=== PATIENT | female | born 1940 | race Caucasian/White ===

== ENCOUNTER 2016-11-05 08:43 | Inpatient (IN) | payer MEDICARE, OTHER ==
[~2016-11-05] VITALS: Ht 165.1 cm; Wt 95.3 kg
[~2016-11-05 08:43] MED LIST: AMLO5TAB22 PO; BYST10TA2 PO; CHLO50TA PO; DOCU1CAP39 PO; ERGO50000 PO; GABA100C4 PO; MORP20SO PO; NEXI40CA PO; NITR.4 SL; NITR4.9S3 SL; OXYC1SOL5 PO; SYNT137T PO; XANA0.5T PO; Z.0.COMMODE-3:1; Z.0.WALKERFRONT
[2016-11-05 08:44] VITALS: BP 205/97; PULSE 105; RESP 20; TEMP 98; O2SAT 97
[2016-11-05] MEDS ORDERED: SODIUM CHLOR 0.9% 1000 ML INJ 1,000 ML IV SCH (09:16)
--- NOTE | 2016-11-05 09:17 | PD ---
HPI Chief Complaint: GI Complaint Time Seen by Provider: 09:15 Travel History International Travel<30 days: No Contact w/Intl Traveler<30days: No Traveled to known affect area: No History of Present Illness HPI 76-year-old female reports vomiting over the course of the night. 8 episodes of vomiting approximately reported. Bilious emesis and now reported. Positive bowel movements without diarrhea reported. No fever. The patient was in a car yesterday apparently without air conditioning which overheated the patient. She denies any idiosyncratic food or potentially food causing food poisoning that she can think of. She reports the triage nurse she had abdominal pain however to me she reports pain in the esophagus which she attributes to her current episodes of vomiting. Severity moderate. Onset gradual. PFSH Past Medical History Arthritis: Yes Asthma: Yes Heart Rhythm Problems: Yes Cancer: No Cardiac Catheterization: Yes Cardiovascular Problems: Yes High Cholesterol: No Chest Pain: Yes Congestive Heart Failure: No Diabetes: No Diminished Hearing: No Endocrine: Yes Gastrointestinal Disorders: Yes (GERD) GERD: Yes Genitourinary: No Hepatitis: Yes (HX JAUNDICE) Hiatal Hernia: Yes Herniated Disk: Yes Hypertension: Yes Immune Disorder: No Inguinal Hernia: Yes Implanted Vascular Access Dvce: Yes Kidney Stones: Yes Musculoskeletal: Yes (LEFT SCIATICA, ARTHRITIS, LOW BACK PAIN) Neurologic: No Psychiatric: Yes (CLAUSTRAPHOBIA) Reproductive: No Respiratory: Yes (ASTHMA, HX BRONCHIECTASIS) Myocardial Infarction: Yes Renal Failure: Yes (STAGE 4 CHRONIC KIDNEY DISEASE) Thyroid Disease: Yes Influenza Vaccination: No ?: Not Menopausal: Yes : 6 Para: 6 Past Surgical History Abdominal Surgery: Yes (EXPL. LAP (X4) LYSIS ADHESIONS, CHOLECYSTECTOMY/ APPY) AICD: No Appendectomy: Yes Body Medical Devices: RIGHT KNEE Cardiac Surgery: Yes Cholecystectomy: Yes Coronary Artery Bypass Graft: No Eye Surgery: Yes (CATARACT ) Genitourinary Surgery: Yes (5 BOWEL OBSTRUCTIONS) Gynecologic Surgery: Yes (VAG. HYST.) Hysterectomy: Yes Joint Replacement: Yes (BILATERAL KNEE) Pacemaker: No Other Surgery: Yes Social History Alcohol Use: No Tobacco Use: No Substance Use: No Allergies-Medications (Allergen,Severity, Reaction): Coded Allergies: Lactose (Unverified Allergy, Severe, GI CRAMPING, 12/19/15) Penicillin (Verified Allergy, Severe, 12/19/15) Codeine (Verified Allergy, Intermediate, SOB, 12/19/15) Milk (Verified Allergy, Intermediate, ACHE, 12/19/15) PEANUTS (Verified Allergy, Intermediate, Swelling, 12/19/15) Sulfa (Verified Allergy, Intermediate, RESP , 12/19/15) Cinnamon (Verified Allergy, Unknown, 12/19/15) Erythromycin (Verified Allergy, Unknown, 12/19/15) Reported Meds & Prescriptions Reported Meds & Active Scripts Active Zofran Odt (Ondansetron Odt) 4 Mg Tab 4 Mg SL Q8HR PRN Reported Synthroid (Levothyroxine Sodium) 137 Mcg Tab 137 Mcg PO DAILY Nexium (Esomeprazole DR) 40 Mg Capdr 40 Mg PO DAILY Gabapentin 100 Mg Cap 100 Mg PO HS Chlorthalidone 25 Mg Tab 12.5 Mg PO DAILY Bystolic (Nebivolol) 10 Mg Tab 20 Mg PO DAILY Amlodipine (Amlodipine Besylate) 5 Mg Tab 5 Mg PO DAILY Ms Contin (Morphine Sulfate) 30 Mg Tablet.er 15 Mg PO HS Xanax (Alprazolam) 0.5 Mg Tab 0.5 Mg PO DAILY Vitamin D2 (Ergocalciferol) 2,000 Unit Tab 5,000 Units PO DAILY Oxycodone-Acetaminophen 7.5-325 mg Tab 1 Tab PO Q6H PRN Review of Systems Except as stated in HPI: all other systems reviewed are Neg General / Constitutional: No: Fever Physical Exam Narrative GENERAL: 76-year-old female well-nourished well-developed mild distress secondary to nausea SKIN: Warm and dry. HEAD: Atraumatic. Normocephalic. EYES: Pupils equal and round. No scleral icterus. No injection or drainage. ENT: No nasal bleeding or discharge. Mucous membranes pink and moist. NECK: Trachea midline. No JVD. CARDIOVASCULAR: Tachycardia. Irregular rhythm. RESPIRATORY: No accessory muscle use. Clear to auscultation. Breath sounds equal bilaterally. GASTROINTESTINAL: Abdomen soft, non-tender, nondistended. Hepatic and splenic margins not palpable. MUSCULOSKELETAL: Extremities without clubbing, cyanosis, or edema. No obvious deformities. NEUROLOGICAL: Awake and alert. No obvious cranial nerve deficits. Motor grossly within normal limits. Five out of 5 muscle strength in the arms and legs. Normal speech. PSYCHIATRIC: Appropriate mood and affect; insight and judgment normal. Data Data Last Documented VS Vital Signs Date Time Temp Pulse Resp B/P Pulse Ox O2 Delivery O2 Flow Rate FiO2 11/05/16 12:53 77 16 156/70 97 Room Air 11/05/16 08:44 98.0 Vital signs reviewed Orders Basic Metabolic Panel (Bmp) (11/05/16 09:16) Complete Blood Count With Diff (11/05/16 09:16) Urinalysis - C+S If Indicated (11/05/16 09:16) Iv Access Insert/Monitor (11/05/16 09:16) Ecg Monitoring (11/05/16 09:16) Oximetry (11/05/16 09:16) Ondansetron Inj (Zofran Inj) (11/05/16 09:30) Sodium Chlor 0.9% 1000 Ml Inj (Ns 1000 M (11/05/16 09:16) Sodium Chloride 0.9% Flush (Ns Flush) (11/05/16 09:30) Al-Mag Hy-Si 40-40-4 Mg/Ml Liq (Mag-Al P (11/05/16 09:30) Lidocaine 2% Viscous (Xylocaine 2% Visco (11/05/16 09:30) Oxycodone-Acetamin 10-325 Mg (Percocet 1 (11/05/16 09:30) Promethazine Inj (Phenergan Inj) (11/05/16 12:00) Prochlorperazine Inj (Compazine Inj) (11/05/16 12:45) Electrocardiogram (11/05/16 ) Hepatic Functional Panel (11/05/16 10:37) Creatine Kinase (Cpk) (11/05/16 10:37) Lipase (11/05/16 10:37) Troponin I (11/05/16 10:37) Ct Abd/Pel W/O Iv Contrast (11/05/16 12:33) Insert Ng Tube (11/05/16 14:13) Admit Order (Ed Use Only) (11/05/16 14:19) Labs Laboratory Tests Test 11/05/16 10:37 White Blood Count 6.9 TH/MM3 Red Blood Count 4.47 MIL/MM3 Hemoglobin 14.0 GM/DL Hematocrit 40.6 % Mean Corpuscular Volume 90.8 FL Mean Corpuscular Hemoglobin 31.3 PG Mean Corpuscular Hemoglobin 34.4 % Concent Red Cell Distribution Width 13.8 % Platelet Count 179 TH/MM3 Mean Platelet Volume 8.9 FL Neutrophils (%) (Auto) 87.2 % Lymphocytes (%) (Auto) 8.7 % Monocytes (%) (Auto) 3.9 % Eosinophils (%) (Auto) 0.1 % Basophils (%) (Auto) 0.1 % Neutrophils # (Auto) 6.0 TH/MM3 Lymphocytes # (Auto) 0.6 TH/MM3 Monocytes # (Auto) 0.3 TH/MM3 Eosinophils # (Auto) 0.0 TH/MM3 Basophils # (Auto) 0.0 TH/MM3 CBC Comment DIFF FINAL Differential Comment Urine Color YELLOW Urine Turbidity CLEAR Urine pH 6.0 Urine Specific [place] 1.014 Urine Protein TRACE mg/dL Urine Glucose (UA) NEG mg/dL Urine Ketones NEG mg/dL Urine Occult Blood NEG Urine Nitrite NEG Urine Bilirubin NEG Urine Urobilinogen LESS THAN 2.0 MG/DL Urine Leukocyte Esterase TRACE Urine RBC 1 /hpf Urine WBC 6 /hpf Urine Squamous Epithelial 1 /hpf Cells Urine Bacteria RARE /hpf Microscopic Urinalysis Comment CULT NOT INDICATED Sodium Level 132 MEQ/L Potassium Level 3.7 MEQ/L Chloride Level 97 MEQ/L Carbon Dioxide Level 25.7 MEQ/L Anion Gap 9 MEQ/L Blood Urea Nitrogen 25 MG/DL Creatinine 1.60 MG/DL Estimat Glomerular Filtration 31 ML/MIN Rate Random Glucose 157 MG/DL Calcium Level 8.8 MG/DL Total Bilirubin 0.9 MG/DL Direct Bilirubin 0.2 MG/DL Indirect Bilirubin 0.7 MG/DL Aspartate Amino Transf 19 U/L (AST/SGOT) Alanine Aminotransferase 22 U/L (ALT/SGPT) Alkaline Phosphatase 89 U/L Total Creatine Kinase 74 U/L Troponin I LESS THAN 0.02 NG/ML Total Protein 7.4 GM/DL Albumin 3.8 GM/DL Lipase 49 U/L [facility] Medical Decision Making Medical Screen Exam Complete: Yes Emergency Medical Condition: Yes Medical Record Reviewed: Yes Differential Diagnosis Constipation, Gastritis, Acute Cholecystitis, Biliary Colic, Pancreatitis, SLOAN , Hepatitis, Bowel Obstruction, Cystitis, Mesenteric Ischemia, AAA, Appendicitis , Renal Stone/Hydronephrosis, GERD, perforated viscous Narrative Course CBC & BMP Diagram 11/05/16 10:37 Urinalysis: Trace leukocyte esterase with 6 WBCs and rare bacteria potentially consistent with cystitis LFTs normal Lipase normal Troponin less than 0.02 EKG reveals a sinus rhythm normal axis and intervals Mild persistent nausea reported at 1150. The Zofran hasn't been helpful. Phenergan IM given. Patient vomited after that. Compazine ordered. CT abdomen and pelvis ordered as well as LFTs and lipase. A CT abdomen and pelvis reveals small bowel obstruction. NG tube ordered. The patient will be admitted for IV hydration and serial exams. At 2:20 PM patient was found resting comfortably. She refused nasogastric tube insertion. She reports a history of hysterectomy and multiple prior small bowel obstructions. Case discussed with Dr. Tilley for the [facility] hospitalist group at 2:20 PM. Critical Care Narrative Aggregate critical care time was 35 minutes. Time to perform other separately billable procedures was not included in the critical care time. My time did not include minutes spent treating any other patients simultaneously or on activities that did not directly contribute to the patient's treatment. The services I provided to this patient were to treat and/or prevent clinically significant deterioration that could result in: Small bowel obstruction, perforated bowel, septic shock I provided critical care services requiring my management, as noted below: Chart data review, documentation time, medication orders and management, vital sign assessments/reviewing monitor data, ordering and reviewing lab tests, ordering and interpreting/reviewing x-rays and diagnostic studies, care of the patient and discussion of the patient with the admitting physicians. Diagnosis Primary Impression: Vomiting Qualified Code: R11.11 - Non-intractable vomiting without nausea, unspecified vomiting type Additional Impressions: Cystitis Small bowel obstruction Admitting Information Admitting Physician Requests: Admit Referrals: Primary Care Physician 2 days Scripts Ondansetron Odt (Zofran Odt)4 Mg Tab4 Mg SL Q8HR PRN (Nausea/Vomiting) #10 TAB Ref 0 Prov:Robert Hadley MD 11/05/16 Robert Hadley MD Nov 05, 2016 09:17
[2016-11-05] MEDS ORDERED: ONDANSETRON HCL 4 MG/2 ML VIAL IVP ONE (09:30)
[2016-11-05] MEDS ORDERED: ALUMINUM/MAGNESIUM/SIMETH 30 ML CUP PO ONE (09:30)
[2016-11-05] MEDS ORDERED: SODIUM CHLORIDE 0.9% FLUSH 10 ML FLUSH IV FLUSH PRN ×2 (09:30→14:45)
[2016-11-05] MEDS ORDERED: oxyCODONE/ACETAMINOPHEN 10 MG/325 MG TAB PO ONE (09:30)
[2016-11-05] MEDS ORDERED: LIDOCAINE VISCOUS 2% SOLN 15 ML UDC PO ONE (09:30)
[2016-11-05] MEDS ORDERED: AMLO5TAB2 PO (09:44)
[2016-11-05] MEDS ORDERED: OXYC1TAB35 PO (09:44)
[2016-11-05] MEDS ORDERED: BYST10TA2 PO (09:44)
[2016-11-05] MEDS ORDERED: ERGO2000 PO (09:44)
[2016-11-05] MEDS ORDERED: CHLO25TA2 PO (09:44)
[2016-11-05] MEDS ORDERED: MS C30TA5 PO (09:44)
[2016-11-05] MEDS ORDERED: ALPR.5 PO (09:44)
[2016-11-05] MEDS ORDERED: GABA100C4 PO (09:45)
[2016-11-05] MEDS ORDERED: NEXI40CA PO (09:45)
[2016-11-05] MEDS ORDERED: LEVO-86 PO (09:45)
[2016-11-05 10:00] VITALS: BP 150/70; PULSE 79; RESP 12; O2SAT 95
[2016-11-05 10:59] LABS: BACTERIA, URINE RARE /hpf; BLOOD, URINE NEG (NEG); COMMENT (UR) CULT NOT INDICATED; CULTURE IF INDICATED CULT NOT INDICATED; GLUCOSE,URINE NEG (NEG); KETONE, URINE NEG (NEG); NITRITE,URINE NEG (NEG); SQUAMOUS EPITHELIAL CELL URINE 1 /hpf (0-5); URINE COLOR YELLOW (YELLW/STRAW)
[2016-11-05 11:07] LABS: BASOPHIL % 0.1 % (0.0-2.0); EOSINOPHIL % 0.1 % (0.0-4.0); HEMATOCRIT 40.6 % (35.0-46.0); HEMO FLAGS DIFF FINAL; LYMPH % 8.7 % (9.0-44.0); LYMPHOCYTE # 0.6 TH/MM3 (1.0-4.8); MEAN CELL VOLUME 90.8 FL (80.0-100.0); MEAN CORPUSCULAR HEMOGLOBIN 31.3 PG (27.0-34.0); MEAN CORPUSCULAR HGB CONC 34.4 % (32.0-36.0); MONO % 3.9 % (0.0-8.0); NEUT % 87.2 % (16.0-70.0); PLATELET COUNT 179 TH/MM3 (150-450); RED BLOOD COUNT 4.47 MIL/MM3 (4.00-5.30); RED CELL DISTRIBUTION WIDTH 13.8 % (11.6-17.2); WHITE BLOOD COUNT 6.9 TH/MM3 (4.0-11.0)
[2016-11-05 11:08] LABS: ANION GAP 9 MEQ/L (5-15); BICARBONATE 25.7 MEQ/L (21.0-32.0); BLOOD UREA NITROGEN 25 MG/DL (7-18); CHLORIDE 97 MEQ/L (98-107); GLOMERULAR FILTRATION RATE 31 ML/MIN (>89); POTASSIUM 3.7 MEQ/L (3.5-5.1); SODIUM (NA) 132 MEQ/L (136-145)
[2016-11-05] MEDS ORDERED: ZOFR4TAB3 SL (11:33)
[2016-11-05] MEDS ORDERED: PROMETHAZINE INJ 25 MG/ML VIAL IM ONE (12:00)
[2016-11-05] MEDS ORDERED: PROCHLORPERAZINE INJ 10 MG/2 ML VIAL IV PUSH ONE (12:45)
[2016-11-05 12:53] VITALS: BP 156/70; PULSE 77; RESP 16; O2SAT 97
[2016-11-05 13:03] LABS: ALT (GPT) 22 U/L (10-53); AST (GOT) 19 U/L (15-37)
[2016-11-05 13:07] LABS: ALKALINE PHOSPHATASE 89 U/L (45-117); INDIRECT BILIRUBIN 0.7 MG/DL (0.0-0.8); TOTAL BILIRUBIN ADULT 0.9 MG/DL (0.2-1.0)
[2016-11-05 13:10] LABS: CREATINE KINASE 74 U/L (26-192)
--- NOTE | 2016-11-05 13:47 | RADRPT ---
EXAM DATE/TIME: 11/05/2016 13:20 [facility] COMPARISON: CT ABDOMEN & PELVIS W CONTRAST, April 27, 2012, 2:28. INDICATIONS : Abdominal pain, nausea and vomiting since yesterday. ORAL CONTRAST: No oral contrast ingested. RADIATION DOSE: 17.18 CTDIvol (mGy) MEDICAL HISTORY : Cardiovascular disease. Hypertension. Renal failure, chronic. SURGICAL HISTORY : Appendectomy. Cholecystectomy.Hysterectomy. ENCOUNTER: Initial ACUITY: 1 day PAIN SCALE: 5/10 LOCATION: Bilateral lower quadrant TECHNIQUE: Volumetric scanning of the abdomen and pelvis was performed. Using automated exposure control and ad justment of the mA and/or kV according to patient size, radiation dose was kept as low as reasonably achievable to obtain optimal diagnostic quality images. DICOM format image data is available electro nically for review and comparison. The lack of IV contrast limits the diagnosis for certain organ pa thology. FINDINGS: LOWER LUNGS: The visualized lower lungs are clear. LIVER: Homogeneous density without lesion. There is no dilation of the biliary tree. No calcified gallston es. SPLEEN: Normal size without lesion. PANCREAS: The pancreas appears to be atrophic. This is not significantly changed compared to 2012. No inflammat ory changes are demonstrated. KIDNEYS: Normal in size and shape. There is no mass, stone, or hydronephrosis. ADRENAL GLANDS: Within normal limits. VASCULAR: There is no aortic aneurysm. BOWEL/MESENTERY: There are multiple moderately dilated loops of proximal and mid small bowel. The distal small bowel i s within normal limits. This suggests a mid to distal partial small bowel obstruction. No inflammator y changes are seen. No free air or free fluid is seen. The colon is within normal limits. There is so me scattered diverticulosis of the descending and sigmoid colon without inflammatory changes. Stool t hroughout the colon. ABDOMINAL WALL: Within normal limits. RETROPERITONEUM: There is no lymphadenopathy. BLADDER: No wall thickening or mass. REPRODUCTIVE: Within normal limits. INGUINAL: There is no lymphadenopathy or hernia. MUSCULOSKELETAL: Within normal limits for patient age. Primary degenerative changes. CONCLUSION: 1. Multiple moderately dilated loops of proximal to mid small bowel suggestive of a small bowel obstr uction. 2. Scattered diverticulosis of the descending and sigmoid colon without inflammatory changes. 3. Stable atrophic appearance of the pancreas. Bernard Fitzgerald MD on November 05, 2016 at 13:40 Board Certified Radiologist. This report was verified electronically.
[2016-11-05] MEDS ORDERED: NALOXONE HCL 0.4 MG/ML AMP IV PRN (14:45)
[2016-11-05] MEDS ORDERED: LACTULOSE SYRUP 20 GM/30 ML CUP PO PRN (14:45)
[2016-11-05] MEDS ORDERED: MAGNESIUM HYDROXIDE SUSP 30 ML CUP PO PRN (14:45)
[2016-11-05] MEDS ORDERED: SENNOSIDES 8.6 MG TAB PO PRN (14:45)
[2016-11-05] MEDS ORDERED: BISACODYL 10 MG SUPP RECTAL PRN (14:45)
[2016-11-05] MEDS ORDERED: ONDANSETRON ODT 4 MG TAB SL PRN (14:45)
[2016-11-05] MEDS ORDERED: ENALAPRILAT 1.25 MG/ML VIAL IV PUSH PRN (16:30)
[2016-11-05] MEDS ORDERED: PANTOPRAZOLE SODIUM 40 MG VIAL IV PUSH SCH (16:30)
[2016-11-05] MEDS ORDERED: MISCELLANEOUS NURSING INFORMATION OTHER ONE (16:30)
[2016-11-05] MEDS ORDERED: ACETAMINOPHEN 650 MG SUPP RECTAL PRN (16:30)
[2016-11-05 17:30] VITALS: BP 120/58; PULSE 80; RESP 16; TEMP 98.1; O2SAT 94
--- NOTE | 2016-11-05 17:31 | RADRPT ---
EXAM DATE/TIME: 11/05/2016 16:10 [facility] COMPARISON: No previous studies available for comparison. INDICATIONS : Contipation and vomitting for 3 days FLUORO TIME: 1.6 minutes IMAGE COUNT: 21 CONTRAST: 1. [facility] MEDICAL HISTORY : Cardiovascular disease. Hypertension. Renal failure, chronic. Constipation. SURGICAL HISTORY : Appendectomy. Cholecystectomy.Hysterectomy. 4X Bowel blockage. ENCOUNTER: Initial ACUITY: 3 days PAIN SCORE: 3/10 LOCATION: abdomen. FINDINGS: Preliminary film is unremarkable. There is a moderate amount of stool in the colon. Under fluoroscopic guidance a Gastrografin enema was performed with free flow of contrast to the ceca l tip. There is stool throughout the colon. No fixed strictures or mechanical obstruction is demonstrated. N o extrinsic mass effect is demonstrated. A few scattered diverticula are noted along the descending a nd sigmoid colon. No extravasation of contrast is demonstrated. Post evacuation radiographs are unremarkable. There is residual stool in the colon. CONCLUSION: 1. Few scattered diverticula are noted along the descending sigmoid colon. 2. Stool throughout the colon. Bernard Fitzgerald MD on November 05, 2016 at 17:27 Board Certified Radiologist. This report was verified electronically.
[2016-11-05] MEDS: PANTOPRAZOLE SODIUM 40 MG VIAL IV PUSH SCH (17:33)
[2016-11-05] MEDS: HEPARIN SODIUM - SQ 10,000 UNITS/ML VIAL SQ SCH (17:34)
--- NOTE | 2016-11-05 17:50 | MB ---
cc: CHASE MARS MD DATE OF CONSULTATION 11/05/2016 REASON FOR CONSULTATION Small bowel obstruction. HISTORY OF PRESENT ILLNESS The patient is a pleasant 76-year-old female who had a one day history of vomiting with increasing abdominal pain. The patient has had multiple episodes of bowel obstruction and has constant chronic problem with chronic constipation due to a large amount of narcotic use. The patient had a bowel movement yesterday and has not had any vomiting in the last few hours. The patient underwent workup including CT scan which demonstrates multiple moderately dilated loops of proximal and mid small bowel. Distal small bowel was within normal limits. There was suggestion of the mid to distal partial small-bowel obstruction. There are no inflammatory changes seen and no free air or intraperitoneal fluid. There was scattered diverticulosis of the descending and sigmoid colon without inflammatory changes. There is a large amount of stool on the transverse colon. PAST MEDICAL HISTORY 1. Multiple abdominal explorations for bowel obstruction 2. History of arthritis with chronic pain syndrome, 3. History of asthma. 4. Cardiac catheterization with cardiac problems, 5. GE reflux disease, 6. History of jaundice 7. Hiatal hernia, 8. Herniated disk, 9. Hypertension, 10. Previous inguinal hernia. 11. The patient had left leg sciatic, arthritis and low back pain. Psychiatric review of systems significant for claustrophobia. Respiratory Significant for asthma and history of bronchiectasis and a history of stage IV chronic kidney disease. PAST SURGERIES 1. Exploratory laparotomy x4 for lysis of adhesions cholecystectomy and appendectomy. 2. Right knee replacement 3. Cardiac surgery with bypass, 4. Cataract extraction 5. Vaginal hysterectomy 6. Right knee replacement. SOCIAL HISTORY She does not drink, smoke or use other IV substances. ALLERGIES Multiple including LACTOSE PENICILLIN CODEINE MILK PEANUTS SULFA ERYTHROMYCIN CINNIMON. MEDICATIONS 1. Synthroid 137 mcg q. day 2. Nexium 40 mg q. day 3. Gabapentin 100 mg p.o. q.h.s., 4. Chlorthalidone 25 mg tab 12.5 mg q. day 5. Bystolic 20 mg q. day, 6. Amlodipine 5 mg p.o. q. day, 7. MS Contin 15 mg p.o. q.h.s., 8. Xanax 0.5 mg daily, 9. Lortab 7.5/325 1 tablet q.6 h p.r.n. PHYSICAL EXAMINATION GENERAL: A morbidly obese female in no acute distress. VITAL SIGNS: BP 156/70, pulse 77, respirations 16, temperature 98.0, 97% saturation on room air. HEENT: Sclerae anicteric. CHEST: Clear to auscultation. CARDIAC: Regular rate and rhythm. ABDOMEN: Soft and nontender, nondistended. There is no guarding or rebound. I do not appreciate any hernias with the patient in a supine position. There is a well-healed transverse incision, well healed right subcostal incision. Pulses are present. EXTREMITIES: The patient is able to move all four extremities. LABORATORY DATA WBCs 6.9, hemoglobin is 14, platelets 179,000. Chemistries demonstrate BUN and creatinine of 25 and 1.6, potassium is 3.7. Liver function tests are within normal limits. Urinalysis - culture is not indicated. IMAGING STUDIES CT scan is as indicated above. ASSESSMENT Partial bowel obstruction likely secondary to constipation, although adhesions are in the differential. We will have the patient undergo gastrografin enema tonight and hopefully patient will not require any operative intervention. I have discussed this with Dr. Tilley who is in agreement. Dr. Tilley's nurse practitioner was seeing the patient immediately after my evaluation. MD IDA Davis/ /5:11 PM /5:29 PM
--- NOTE | 2016-11-05 18:20 | MH ---
cc: ANTHONY HOOKER MD DATE OF ADMISSION: 11/05/2016 CHIEF COMPLAINT: Nausea, vomiting. TRAVEL IN THE LAST THIRTY DAYS: None. HISTORY OF PRESENT ILLNESS: This is a pleasant 76-year-old white female who noted over the past 24 hours the acute onset of nausea and vomiting. She states that she has vomited approximately eight times over the past 24 hours and has an impending feeling of doom. She denies any chest pain. No shortness of breath. She does have nausea and vomiting. She denies headache. She is alert, awake and a fair historian. She notes that the severity has been moderate to severe and thought at first that she might have suffered from food poisoning. The patient still notes some abdominal pain and has a history of small bowel obstructions in the past. PAST MEDICAL HISTORY: Her past medical history includes: 1. Arthritis. 2. Asthma. 3. Cardiovascular disease. 4. Previous heart catheterizations. 5. Chest pain. 6. Obesity. 7. Gastroesophageal reflux disease (GERD). 8. Debility. 9. Hiatal hernia. 10. Degenerative disc disease with herniated disc. 11. Hypertension. 12. Inguinal hernia. 13. Sciatica. 14. Arthritis. 15. Low back pain. 16. Claustrophobic. 17. Asthma. 18. COPD. 19. Stage IV chronic kidney disease. 20. Myocardial infarction. 21. Thyroid disease. This multiple medical histories were gone over and the patient agreed except there was noted a history of jaundice and neither the patient nor her daughter had any recollection of this. PAST SURGICAL HISTORY: 1. Exploratory laparotomy x4 with lysis of adhesions. 2. Cholecystectomy. 3. Appendectomy. 4. Bilateral knee surgery. 5. Vaginal hysterectomy. SOCIAL HISTORY: The patient is and has been living with her kids and/or grandkids and has good family support. She denies any alcohol. She smoked as a young lady but quit in 1987. No illicit drug use. ALLERGIES: 1. CINNAMON. 2. CODEINE. 3. ERYTHROMYCIN. 4. LACTOSE. 5. MILK. 6. PEANUTS. 7. PENICILLIN. 8. SULFA. MEDICATIONS REPORTED: 1. Synthroid. 2. Nexium. 3. Gabapentin. 4. Chlorthalidone. 5. Bystolic. 6. Amlodipine. 7. MS Contin. 8. Xanax. 9. Vitamin D2. 10. Oxycodone. REVIEW OF SYSTEMS: A twelve point review of systems was obtained and positives noted in the history of present illness which include nausea, vomiting, acute on chronic pain, normal bowel movements with no diarrhea. No fever. Other systems negative or unremarkable. PHYSICAL EXAMINATION: VITAL SIGNS: Temperature is 98, pulse initially was 105 on admission and now 77, respiratory rate 20 on admission now 16, blood pressure uncontrolled and elevated on admission at 205/97 now 156/70, 02 saturation 97% on room air. GENERAL: Obese white female looks to be her stated age resting in the bed. She is awake, alert and understands the process. SKIN: Velma warm and dry. HEAD, EYES, EARS, NOSE, THROAT: The mucous membranes are pink and mildly dry. Pupils equal, round and reactive to light and accommodation. No scleral icterus. NEC: The neck is thick, supple. CARDIOVASCULAR: S1-S2. Rhythm is regular now. No murmurs, rubs or gallops audible. EXTREMITIES: She has a trace of pedal edema but it is very minimal. No obvious deformities. NEUROLOGIC: She is alert and oriented and understands simple questions and process for admission. Speech is clear and normal. PSYCHIATRIC: Appropriate mood and affect. DIAGNOSTIC DATA: White blood cell count 6.9, RBCs 4.47, hemoglobin 14, hematocrit 40.6, platelet count 179,000. Neutrophil percentage is 87.2. Lymphocytes 8.7. Chemistries: Sodium is 132, potassium 3.7, chloride 97, carbon dioxide 25.7, anion gap 9, creatinine 25, BUN 1.6, GFR 31, random glucose 157. Troponin less than 0.02. Lipase 49. Urine has a trace of leukocyte esterase and a trace of protein but a culture is not indicated. IMAGING STUDIES: Abdomen and pelvis CT: Multiple moderate dilated loops of proximal to mid small bowel suggestive of a small bowel obstruction. Scattered diverticulosis of the descending and sigmoid colon without inflammatory changes. Stable atrophic appearance of the pancreas. ASSESSMENT: 1. Small bowel obstruction. 2. Hypertension, uncontrolled. 3. History of coronary artery disease. 4. History of osteoarthritis. 5. Chronic pain. 6. Chronic kidney disease. 7. Morbid obesity. PLAN: 1. Admit. 2. The patient received medications and fluids in the emergency room. 3. ECG monitoring. 4. IV access. 5. Will continue to monitor her labs. 6. The patient did receive pain medications p.o. and promethazine IM in the emergency room. 7. Initially the patient was going to have nasogastric tube inserted but she spoke with the surgeon, Dr. Stubbs, who agreed to leave it out if her nausea and vomiting were under control. 8. Her medications have been reconciled but it was noted per Dr. Stubbs that he did not want her to have any p.o. medications if at all possible. 9. IV Protonix, IV blood pressure control medications and pain management have been ordered as well as Tylenol suppository for temperature if needed. 10. The patient has also had a consult with general surgeon, Dr. Stubbs. A plan was laid out, which includes a Gastrografin enema. It is thought that since the patient has chronic pain and pain management as well as a history of diverticulosis and exploratory laparotomy x4 with lysis of adhesions and multiple bowel obstructions, we are hopeful that this can be controlled and resolved without a surgical event. The patient's daughter is with her and understands the process. 11. Will order labs in the morning. 12. Will monitor her needs. The patient is FULL CODE, FULL AGGRESSIVE CARE. Dictated by KENYATTA Tavares. MD PANTERA Mascorro/LEYLA /5:39 PM /5:53 PM seen, examined by myself, Dr Hooker, today Discussed with patient She is already feeling better after an enema Conservative management at this time Discussed with general surgery No surgery anticipated at this time Details as above Discussed with mid level provider The exam, history, and the medical decision-making described in the above note were completed with the assistance of the mid-level provider. I reviewed the findings presented. I attest that I had a [id number] encounter with the patient on the same day, and personally performed and documented my assessment and findings in the medical record. RAMIRO
[2016-11-05 20:00] VITALS: BP 147/67; PULSE 72; RESP 18; TEMP 97.6; O2SAT 93
[2016-11-05] MEDS ORDERED: GABAPENTIN 100 MG CAP PO SCH (21:00)
[2016-11-05] MEDS: SODIUM CHLORIDE 0.9% FLUSH 10 ML FLUSH IV FLUSH SCH (21:00)
[2016-11-05] MEDS ORDERED: MORPHINE SULFATE 15 MG CONTROLLED RELEASE TAB PO SCH (21:00)
[2016-11-05] MEDS ORDERED: DOCUSATE SODIUM 50 MG/SENNA 8.6 MG TAB PO SCH (21:00)
[2016-11-06] VITALS: BP 150/64; PULSE 71; RESP 18; TEMP 98.6; O2SAT 94
[2016-11-06] MEDS: SODIUM CHLOR 0.9% 1000 ML INJ 1,000 ML IV SCH ×3 (00:53→20:20)
[2016-11-06] MEDS: HEPARIN SODIUM - SQ 10,000 UNITS/ML VIAL SQ SCH ×2 (05:07→17:26)
[2016-11-06] MEDS: LEVOTHYROXINE SODIUM 25 MCG TAB PO SCH (05:11)
[2016-11-06] MEDS: LEVOTHYROXINE SODIUM 112 MCG TAB PO SCH (05:11)
[2016-11-06 07:13] LABS: AUTOMATED NEUTROPHIL # 3.3 TH/MM3 (1.8-7.7); BASOPHIL % 0.2 % (0.0-2.0); EOSINOPHIL % 0.5 % (0.0-4.0); HEMATOCRIT 35.7 % (35.0-46.0); HEMO FLAGS DIFF FINAL; MEAN CELL VOLUME 92.6 FL (80.0-100.0); MEAN CORPUSCULAR HEMOGLOBIN 31.4 PG (27.0-34.0); MEAN CORPUSCULAR HGB CONC 33.9 % (32.0-36.0); MONO % 7.3 % (0.0-8.0); PLATELET COUNT 152 TH/MM3 (150-450); RED BLOOD COUNT 3.86 MIL/MM3 (4.00-5.30); RED CELL DISTRIBUTION WIDTH 13.9 % (11.6-17.2); WHITE BLOOD COUNT 4.6 TH/MM3 (4.0-11.0)
[2016-11-06 07:37] LABS: BICARBONATE 27.9 MEQ/L (21.0-32.0); POTASSIUM 3.4 MEQ/L (3.5-5.1)
[2016-11-06 08:00] VITALS: BP 136/60; PULSE 77; RESP 20; TEMP 98.7; O2SAT 95
[2016-11-06] MEDS: SODIUM CHLORIDE 0.9% FLUSH 10 ML FLUSH IV FLUSH SCH ×2 (09:00→20:20)
[2016-11-06] MEDS: amLODIPine BESYLATE 5 MG TAB PO SCH (09:00)
[2016-11-06] MEDS: DOCUSATE SODIUM 50 MG/SENNA 8.6 MG TAB PO SCH ×2 (10:54→20:21)
[2016-11-06] MEDS: ALPRAZolam 0.5 MG TAB PO SCH (10:55)
[2016-11-06] MEDS: CHOLECALCIFEROL (VIT D3) 5000 UNIT CAP PO SCH (10:55)
[2016-11-06] MEDS: NEBIVOLOL 10 MG TAB PO SCH (10:56)
[2016-11-06] MEDS: oxyCODONE/ACETAMINOPHEN 7.5 MG/325 MG TAB PO PRN ×3 (10:59→23:50)
[2016-11-06 12:00] VITALS: BP 144/65; PULSE 73; RESP 20; TEMP 98; O2SAT 96
[2016-11-06] MEDS: POTASSIUM CHLOR 20 MEQ PREMIX 100 ML IV SCH ×2 (13:30→17:25)
--- NOTE | 2016-11-06 14:18 | HHI.PR ---
Subjective Remarks Sitting up in chair Drinking clear liquids for the first time Abdomen much softer and less painful Afebrile Objective Objective Results - Vital Signs Date Time Temp Pulse Resp B/P Pulse Ox O2 Delivery O2 Flow Rate FiO2 11/06/16 12:00 98.0 73 20 144/65 96 11/06/16 08:00 98.7 77 20 136/60 95 11/06/16 00:00 98.6 71 18 150/64 94 11/05/16 20:00 97.6 72 18 147/67 93 11/05/16 17:30 98.1 80 16 120/58 94 I/O 11/05/16 11/05/16 11/05/16 11/06/16 11/06/16 11/06/16 07:00 15:00 23:00 07:00 15:00 23:00 Intake Total 144 ml 645 ml 695 ml Output Total 300 ml Balance 144 ml 345 ml 695 ml Intake Oral 0 ml 0 ml IV Total 144 ml 645 ml 695 ml Output Urine Total 300 ml # Voids 0 1 # Bowel Movements 0 0 Result Diagram: 11/06/1644611/06/16446 ROS General: Other (10 point ROS done positives noted, deconditioned with obesity) GI: Abdominal Pain (improving) Physical Exam Physical Exam PHYSICAL EXAMINATION GENERAL: This is a obese elderly female who appears to be in no acute distress. She is alert and awake, HEAD: Normocephalic Facial features appear symmetric. OROPHARYNGEAL: Oropharynx clean NECK: Supple. No nuchal rigidity or lymphadenopathy. Trachea midline without deviation. CARDIAC: Regular rhythm, regular rate, S1 and S2 are heard. LUNGS: Clear to auscultation bilaterally. Mild decreased breath sounds at bases ABDOMEN: Taut round small hernia palpated around umbilicus, nontender improving over past 12 hours, Bowel sounds are active No rebound. No guarding. EXTREMITIES: Trace , minimal edema. Bilateral extremities warm. NEUROLOGICAL: Patient mood and affect appropriate. No focal deficit SKIN:Warm and dry A/P Assessment and Plan Vital signs reviewed, afebrile normal trends for now Labs reviewed, hypokalemia mild potassium 3.4, will give IV potassium since patient has been nothing by mouth, acute kidney injury still noted but much improved with IV hydration Bowel regimen, good results from enema last night, continue to monitor Continue telemetry, will have physical therapy ambulate the patient and evaluate her mobility and safety 1. Small bowel obstruction. Appreciate surgical input and consult, positive results from enema given last night, patient is now sitting up in chair in attempting to drink clear liquids for the first time, no acute nausea and vomiting noted. We'll continue to monitor for any symptoms, abdomen is much softer and less painful 2. Hypertension, uncontrolled initially on admission, now controlled medical management will continue to monitor 3. History of coronary artery disease., Medical management 4. History of osteoarthritis., Chronic pain management, has been receiving IV pain meds can now transition to by mouth 5. Chronic pain. , Medical management, should be able to transition back to her by mouth meds same 6. Chronic kidney disease., With acute kidney injury Trends are down with hydration 7. Morbid obesity. Encouraged to stay active, ambulate as much as possible, good nutrition, PT eval and treat Discussed with patient Discussed with nurse Discussed with Dr. Del Angel, seen on his behalf Nyla Long Nov 06, 2016 14:18
--- NOTE | 2016-11-06 15:45 | HHI.PR ---
Subjective Subjective Notes Ambulating in room Has had multiple BMs Objective Vitals/I&O Vital Signs Date Time Temp Pulse Resp B/P Pulse Ox O2 Delivery O2 Flow Rate FiO2 11/06/16 12:00 98.0 73 20 144/65 96 11/05/16 12:53 Room Air Labs Laboratory Tests Test 11/06/16 04:47 White Blood Count 4.6 Red Blood Count 3.86 Hemoglobin 12.1 Hematocrit 35.7 Mean Corpuscular Volume 92.6 Mean Corpuscular Hemoglobin 31.4 Mean Corpuscular Hemoglobin 33.9 Concent Red Cell Distribution Width 13.9 Platelet Count 152 Mean Platelet Volume 9.1 Neutrophils (%) (Auto) 71.0 Lymphocytes (%) (Auto) 21.0 Monocytes (%) (Auto) 7.3 Eosinophils (%) (Auto) 0.5 Basophils (%) (Auto) 0.2 Neutrophils # (Auto) 3.3 Lymphocytes # (Auto) 1.0 Monocytes # (Auto) 0.3 Eosinophils # (Auto) 0.0 Basophils # (Auto) 0.0 CBC Comment DIFF FINAL Differential Comment Sodium Level 139 Potassium Level 3.4 Chloride Level 105 Carbon Dioxide Level 27.9 Anion Gap 6 Blood Urea Nitrogen 19 Creatinine 1.37 Estimat Glomerular Filtration 37 Rate Random Glucose 97 Calcium Level 8.0 Lipase 52 Cardiovascular: Regular Lungs: Clear Abdomen: Other (soft non tender to palpation ) Extremities: No edema A/P Assessment and Plan 76 year old female with SBO -S/p Gastrografin enema -+BM -Start clears this AM; advance diet -If able to tolerate a diet; likely home tomorrow -Continue non op treatment Attending Note - Dr. Stubbs Abdomen benign. Tolerating diet; advance to regular and D/C home when OK with medical team The exam, history, and the medical decision-making described in the above note were completed with the assistance of the mid-level provider. I reviewed and agree with the findings presented. I attest that I had a [id number] encounter with the patient on the same day, and personally performed and documented my assessment and findings in the medical record. Haylee Gallo Nov 06, 2016 15:45 Cliff Stubbs MD Nov 06, 2016 18:26
[2016-11-06 16:00] VITALS: BP 139/62; PULSE 72; RESP 20; TEMP 98; O2SAT 95
--- NOTE | 2016-11-06 16:28 | EKG ---
Date Performed: 11/05/2016 Time Performed: 12:55:18 PTAGE: 76 years EKG: Sinus rhythm LEFT AXIS DEVIATION Poor R wave progression, which may be a normal variant. POSSIBLE ANTERIOR MYOCAR DIAL INFARCTION When compared to previous tracing, no significant change. ABNORMAL ECG PREVIOUS TRACING : 12/19/2015 12.33 DOCTOR: Flaco Barboza Interpretating Date/Time 11/06/2016 16:28:28
[2016-11-06] MEDS: PANTOPRAZOLE SODIUM 40 MG VIAL IV PUSH SCH (17:26)
[2016-11-06] MEDS: LIDOCAINE HCL 5% PATCH T-DERMAL SCH (19:15)
[2016-11-06 20:00] VITALS: BP 153/65; PULSE 65; PULSE 68; RESP 20; TEMP 97.9; O2SAT 96
[2016-11-06] MEDS: POTASSIUM CHLORIDE 10 MEQ CONTROLLED RELEASE TAB PO SCH (20:21)
[2016-11-06] MEDS: MORPHINE SULFATE 15 MG CONTROLLED RELEASE TAB PO SCH (20:22)
[2016-11-06] MEDS: GABAPENTIN 100 MG CAP PO SCH (20:22)
[2016-11-07] VITALS (7 sets, daily range): BP systolic 115–173; BP diastolic 54–76; PULSE 58–67; RESP 18–20; TEMP 97.1–97.8; O2SAT 94–100
[2016-11-07] MEDS: ONDANSETRON HCL 4 MG/2 ML VIAL IVP PRN ×3 (01:46→21:21)
[2016-11-07] MEDS: HEPARIN SODIUM - SQ 10,000 UNITS/ML VIAL SQ SCH ×2 (05:10→17:23)
[2016-11-07] MEDS: LEVOTHYROXINE SODIUM 112 MCG TAB PO SCH (05:10)
[2016-11-07] MEDS: LEVOTHYROXINE SODIUM 25 MCG TAB PO SCH (05:10)
[2016-11-07] MEDS: SODIUM CHLOR 0.9% 1000 ML INJ 1,000 ML IV SCH ×3 (05:11→19:36)
[2016-11-07] MEDS: oxyCODONE/ACETAMINOPHEN 7.5 MG/325 MG TAB PO PRN ×3 (06:22→19:36)
[2016-11-07] MEDS: NEBIVOLOL 10 MG TAB PO SCH (09:00)
[2016-11-07] MEDS: amLODIPine BESYLATE 5 MG TAB PO SCH (09:00)
[2016-11-07] MEDS: SODIUM CHLORIDE 0.9% FLUSH 10 ML FLUSH IV FLUSH SCH ×2 (10:33→19:35)
[2016-11-07] MEDS: POTASSIUM CHLORIDE 10 MEQ CONTROLLED RELEASE TAB PO SCH ×2 (10:34→19:36)
[2016-11-07] MEDS: LIDOCAINE HCL 5% PATCH T-DERMAL SCH (10:34)
[2016-11-07] MEDS: CHOLECALCIFEROL (VIT D3) 5000 UNIT CAP PO SCH (10:35)
[2016-11-07] MEDS: ALPRAZolam 0.5 MG TAB PO SCH (10:35)
[2016-11-07] MEDS: DOCUSATE SODIUM 50 MG/SENNA 8.6 MG TAB PO SCH ×2 (10:35→19:36)
--- NOTE | 2016-11-07 11:09 | HHI.PR ---
Subjective Remarks Sitting up in chair Low back pain, patient trying to use the lidocaine patch Taking by mouth fluids, some nausea after potassium dose, but no emesis Afebrile (Nyla Long) Objective Objective Results - Vital Signs Date Time Temp Pulse Resp B/P Pulse Ox O2 Delivery O2 Flow Rate FiO2 11/07/16 08:00 97.6 58 18 115/57 95 11/07/16 04:00 97.5 62 20 142/65 94 11/07/16 00:00 97.5 64 20 139/66 95 11/06/16 20:00 97.9 65 20 153/65 96 11/06/16 20:00 68 11/06/16 16:00 98.0 72 20 139/62 95 11/06/16 12:00 98.0 73 20 144/65 96 I/O 11/06/16 11/06/16 11/06/16 11/07/16 11/07/16 11/07/16 07:00 15:00 23:00 07:00 15:00 23:00 Intake Total 645 ml 695 ml 1105 ml 995 ml 120 ml Output Total 300 ml 1200 ml 800 ml 1300 ml Balance 345 ml -505 ml 305 ml -305 ml 120 ml Intake Oral 0 ml 320 ml 240 ml 120 ml IV Total 645 ml 695 ml 785 ml 755 ml Output Urine Total 300 ml 1200 ml 800 ml 1300 ml # Voids 1 7 # Bowel Movements 0 3 1 0 (Nyla Long) Result Diagram: 11/06/1644611/06/16446 ROS General: Weakness (improving slowly), Other (10 point ROS done positives noted) GI: Abdominal Pain (improved, abdomen soft to light palpation, bowel sounds are active) Neuro/MS: Other (generalized low back pain) (Nyla Long) Physical Exam Physical Exam PHYSICAL EXAMINATION GENERAL: This is an elderly female who appears to be in no acute distress. She is alert and awake, HEAD: Normocephalic, atraumatic Facial features appear symmetric. OROPHARYNGEAL: Oropharynx without erythema or edema. NECK: Supple. No nuchal rigidity or lymphadenopathy. Trachea midline without deviation. CARDIAC: Regular rhythm, regular rate, S1 and S2 are heard LUNGS: Clear to auscultation bilaterally. No shortness of breath noted No use of accessory muscles on inspiration or expiration. ABDOMEN: Taut, Soft, nontender, small umbilical hernia palpated, soft to touch Bowel sounds are heard No rebound. No guarding. EXTREMITIES: Mild trace only lower extremities edema. Pulses equal bilateral. NEUROLOGICAL: Patient mood and affect appropriate. Speech is clear SKIN:Warm and moist, pale (Nyla Long) A/P Assessment and Plan Vital signs reviewed, afebrile normal trends, afebrile Labs reviewed, hypokalemia on 811, became nauseated after taking initial potassium, encouraged to drink water and orange juice when taking it Bowel regimen, good results from enema last night, bowel movements 2 since admission Continue telemetry, physical therapy pending, patient's up in chair 1. Small bowel obstruction. Appreciate surgical input and consult, continue to push by mouth fluids, some nausea after taking potassium but no vomiting, states decreased appetite with any solid food, does have some crackers sitting on her bedside, 2. Hypertension, uncontrolled initially on admission, medical management controlled 3. History of coronary artery disease., Medical management 4. History of osteoarthritis., Chronic pain management, has been receiving IV pain meds can now transition to by mouth, also using lidocaine patch on lower back, minimal relief, but willing to try again today 5. Chronic pain. , Medical management, trying lidocaine patch 6. Chronic kidney disease., With acute kidney injury Trends are down with hydration, tinea to encourage by mouth fluids 7. Morbid obesity. Encouraged to stay active, ambulate as much as possible, good nutrition, PT eval and treat Discussed with patient Discussed with nurse Discussed with Dr. Del Angel, seen on his behalf (Nyla Long) Assessment and Plan seen, examined by myself, Dr Del Angel, today Discussed with patient Discussed with nurse Condition improving Discharge tomorrow Discussed with mid level provider The exam, history, and the medical decision-making described in the above note were completed with the assistance of the mid-level provider. I reviewed the findings presented. I attest that I had a [id number] encounter with the patient on the same day, and personally performed and documented my assessment and findings in the medical record. (Marissa Del Angel MD) Nyla Long Nov 07, 2016 11:09 Marissa Del Angel MD Nov 07, 2016 18:22
--- NOTE | 2016-11-07 16:50 | HHI.PR ---
Subjective Subjective Notes feels better, had nausea last night after potassium. took zofran with oral potassium and did better today. Had 4 BMs. Objective Vitals/I&O Vital Signs Date Time Temp Pulse Resp B/P Pulse Ox O2 Delivery O2 Flow Rate FiO2 11/07/16 16:00 97.1 62 19 173/75 100 11/05/16 12:53 Room Air Abdomen: Other (soft, protuberant, active bowel sounds, non tender.) A/P Assessment and Plan recurrent SBO, appears to be resolving. Low potassium. Hopeful DC soon. Jose R Trent MD Nov 07, 2016 16:50
[2016-11-07] MEDS: PANTOPRAZOLE SODIUM 40 MG VIAL IV PUSH SCH (17:23)
[2016-11-07] MEDS: MORPHINE SULFATE 15 MG CONTROLLED RELEASE TAB PO SCH (19:35)
[2016-11-07] MEDS: GABAPENTIN 100 MG CAP PO SCH (19:37)
[2016-11-08] VITALS (7 sets, daily range): BP systolic 134–181; BP diastolic 61–83; PULSE 61–68; RESP 19–20; TEMP 96.9–97.9; O2SAT 94–98
[2016-11-08] MEDS: oxyCODONE/ACETAMINOPHEN 7.5 MG/325 MG TAB PO PRN ×3 (02:37→18:11)
[2016-11-08] MEDS: LEVOTHYROXINE SODIUM 112 MCG TAB PO SCH ×2 (05:17→10:05)
[2016-11-08] MEDS: LEVOTHYROXINE SODIUM 25 MCG TAB PO SCH ×2 (05:17→10:03)
[2016-11-08] MEDS: HEPARIN SODIUM - SQ 10,000 UNITS/ML VIAL SQ SCH ×2 (05:18→17:00)
[2016-11-08 06:27] LABS: BICARBONATE 26.1 MEQ/L (21.0-32.0)
[2016-11-08 06:40] LABS: POTASSIUM 4.6 MEQ/L (3.5-5.1)
[2016-11-08] MEDS: SODIUM CHLORIDE 0.9% FLUSH 10 ML FLUSH IV FLUSH SCH ×2 (10:00→20:07)
[2016-11-08] MEDS: ONDANSETRON HCL 4 MG/2 ML VIAL IVP PRN ×2 (10:02→20:21)
[2016-11-08] MEDS: amLODIPine BESYLATE 5 MG TAB PO SCH (10:03)
[2016-11-08] MEDS: DOCUSATE SODIUM 50 MG/SENNA 8.6 MG TAB PO SCH ×2 (10:04→20:07)
[2016-11-08] MEDS: CHOLECALCIFEROL (VIT D3) 5000 UNIT CAP PO SCH (10:04)
[2016-11-08] MEDS: POTASSIUM CHLORIDE 10 MEQ CONTROLLED RELEASE TAB PO SCH ×2 (10:05→20:06)
[2016-11-08] MEDS: ALPRAZolam 0.5 MG TAB PO SCH (10:05)
[2016-11-08] MEDS: NEBIVOLOL 10 MG TAB PO SCH (10:17)
[2016-11-08] MEDS: LIDOCAINE HCL 5% PATCH T-DERMAL SCH (10:17)
--- NOTE | 2016-11-08 12:36 | HHI.PR ---
Subjective Subjective Notes feeling better, bowels working, tolerating po, no emesis Objective Vitals/I&O Vital Signs Date Time Temp Pulse Resp B/P Pulse Ox O2 Delivery O2 Flow Rate FiO2 11/08/16 08:00 97.1 68 19 169/74 96 11/05/16 12:53 Room Air Labs Laboratory Tests Test 11/08/16 04:20 Sodium Level 142 Potassium Level 4.6 Chloride Level 107 Carbon Dioxide Level 26.1 Anion Gap 9 Blood Urea Nitrogen 9 Creatinine 1.27 Estimat Glomerular Filtration 41 Rate Random Glucose 95 Calcium Level 7.7 Abdomen: Non-distended, Non-tender, BS normal A/P Assessment and Plan PSBO - resolving continue medical management advance diet as tolerated laxative, stool softeners prn Carrillo Najera MD Nov 08, 2016 12:36
[2016-11-08] MEDS: SODIUM CHLOR 0.9% 1000 ML INJ 1,000 ML IV SCH ×2 (12:37→20:07)
--- NOTE | 2016-11-08 14:27 | HHI.PR ---
Subjective Remarks Sitting up in chair Low back pain, patient trying to use the lidocaine patch Taking by mouth fluids, some nausea after potassium dose, but no emesis Afebrile Objective Objective Results - Vital Signs Date Time Temp Pulse Resp B/P Pulse Ox O2 Delivery O2 Flow Rate FiO2 11/08/16 08:00 97.1 68 19 169/74 96 11/08/16 04:00 97.9 62 20 144/66 96 11/08/16 00:00 97.1 64 20 145/65 94 11/07/16 20:00 97.8 65 20 172/76 95 11/07/16 19:51 60 11/07/16 16:00 97.1 62 19 173/75 100 I/O 11/07/16 11/07/16 11/07/16 11/08/16 11/08/16 11/08/16 07:00 15:00 23:00 07:00 15:00 23:00 Intake Total 995 ml 1185 ml 240 ml 240 ml 1080 ml Output Total 1300 ml 800 ml 300 ml 900 ml 1300 ml Balance -305 ml 385 ml -60 ml -660 ml -220 ml Intake Oral 240 ml 600 ml 240 ml 240 ml 1080 ml IV Total 755 ml 585 ml Output Urine Total 1300 ml 800 ml 300 ml 900 ml 1300 ml # Bowel Movements 0 0 0 Result Diagram: 11/06/16 0447 11/08/16419 Physical Exam Physical Exam PHYSICAL EXAMINATION GENERAL: This is a well-developed, well-nourished female who appears to be in no acute distress. She is alert and awake, []. HEAD: Normocephalic without any lesion or mass noted. Facial features appear symmetric. OROPHARYNGEAL: Oropharynx without erythema or edema. NECK: Supple. No nuchal rigidity or lymphadenopathy. Trachea midline without deviation. CARDIAC: Regular rhythm, regular rate, S1 and S2 are heard. Murmur []; no gallops or rubs. LUNGS: Clear to auscultation bilaterally. [] wheeze, [] rhonchi or [] rale. No use of accessory muscles on inspiration or expiration. ABDOMEN: Soft, nontender, no organomegaly or masses. Bowel sounds are heard in all four quadrants. No rebound. No guarding. EXTREMITIES: [] edema. Pulses equal bilateral. [] cyanosis. NEUROLOGICAL: Patient mood and affect appropriate. No focal deficit SKIN:Warm and moist A/P Assessment and Plan Vital signs reviewed, afebrile, BP 169/74 Labs reviewed, acute kidney injury improved, potassium now 4.6 Bowel regimen, BM within 24 hours of admission but none since, milk of Magnesia ordered for this p.m., Continue telemetry, physical therapy pending, patient's up in chair 1. Small bowel obstruction. Appreciate surgical input and consult, seems to be resolving, patient is eating small amounts of solid food 2. Hypertension, medical management with her meds 3. History of coronary artery disease., Medical management 4. History of osteoarthritis., Chronic medical management, encouraged some activity as tolerated 5. Chronic pain. , Medical management, 6. Chronic kidney disease., With acute kidney injury Trends are down with hydration, encourage by mouth fluids 7. Morbid obesity. Encouraged to stay active, ambulate as much as possible, good nutrition, PT eval and treat Discussed with patient Discussed with nurse Discussed with Dr. Del Angel, seen on his behalf Discharge planning today or tomorrow Nyla Long Nov 08, 2016 14:27
[2016-11-08] MEDS ORDERED: MAGNESIUM HYDROXIDE SUSP 30 ML CUP PO ONE (14:30)
[2016-11-08] MEDS: PANTOPRAZOLE SODIUM 40 MG VIAL IV PUSH SCH (17:00)
[2016-11-08] MEDS: MORPHINE SULFATE 15 MG CONTROLLED RELEASE TAB PO SCH (20:07)
[2016-11-08] MEDS: GABAPENTIN 100 MG CAP PO SCH (20:07)
[2016-11-09] VITALS: BP 140/66; PULSE 64; RESP 20; TEMP 97.6; O2SAT 95
[2016-11-09] MEDS: oxyCODONE/ACETAMINOPHEN 7.5 MG/325 MG TAB PO PRN ×3 (00:43→14:54)
[2016-11-09 04:00] VITALS: BP 161/71; PULSE 58; RESP 20; TEMP 97.1; O2SAT 94
[2016-11-09] MEDS: LEVOTHYROXINE SODIUM 112 MCG TAB PO SCH (05:28)
[2016-11-09] MEDS: HEPARIN SODIUM - SQ 10,000 UNITS/ML VIAL SQ SCH (05:28)
[2016-11-09] MEDS: LEVOTHYROXINE SODIUM 25 MCG TAB PO SCH (05:28)
[2016-11-09 08:00] VITALS: BP 179/72; PULSE 62; RESP 16; TEMP 96.2; O2SAT 97
[2016-11-09] MEDS: SODIUM CHLORIDE 0.9% FLUSH 10 ML FLUSH IV FLUSH SCH (09:00)
[2016-11-09] MEDS: NEBIVOLOL 10 MG TAB PO SCH (09:15)
[2016-11-09] MEDS: POTASSIUM CHLORIDE 10 MEQ CONTROLLED RELEASE TAB PO SCH (09:15)
[2016-11-09] MEDS: DOCUSATE SODIUM 50 MG/SENNA 8.6 MG TAB PO SCH (09:15)
[2016-11-09] MEDS: ALPRAZolam 0.5 MG TAB PO SCH (09:15)
[2016-11-09] MEDS: CHOLECALCIFEROL (VIT D3) 5000 UNIT CAP PO SCH (09:15)
[2016-11-09] MEDS: amLODIPine BESYLATE 5 MG TAB PO SCH (09:15)
[2016-11-09] MEDS: LIDOCAINE HCL 5% PATCH T-DERMAL SCH (09:16)
[2016-11-09] MEDS: ONDANSETRON HCL 4 MG/2 ML VIAL IVP PRN (09:19)
[2016-11-09 12:00] VITALS: BP 143/71; PULSE 64; RESP 16; TEMP 96.7; O2SAT 94
[2016-11-09] MEDS ORDERED: BISACODYL 10 MG SUPP RECTAL ONE (12:15)
--- NOTE | 2016-11-09 13:21 | HHI.PR ---
Subjective Remarks Up walking around in room Denies any acute pain or shortness of breath for now Patient took M OM yesterday but no BM Dulcolax suppository ordered for this morning, Afebrile Objective Objective Results - Vital Signs Date Time Temp Pulse Resp B/P Pulse Ox O2 Delivery O2 Flow Rate FiO2 11/09/16 12:00 96.7 64 16 143/71 94 11/09/16 08:00 96.2 62 16 179/72 97 11/09/16 04:00 97.1 58 20 161/71 94 11/09/16 00:00 97.6 64 20 140/66 95 11/08/16 20:20 62 11/08/16 20:00 97.8 64 20 146/70 96 11/08/16 16:00 96.9 61 20 181/83 98 11/08/16 14:00 96.9 62 19 134/61 96 I/O 11/08/16 11/08/16 11/08/16 11/09/16 11/09/16 11/09/16 07:00 15:00 23:00 07:00 15:00 23:00 Intake Total 240 ml 1080 ml 240 ml 120 ml Output Total 900 ml 1300 ml 1600 ml 300 ml Balance -660 ml -220 ml -1360 ml -180 ml Intake Oral 240 ml 1080 ml 240 ml 120 ml IV Total 0 ml 0 ml Output Urine Total 900 ml 1300 ml 1600 ml 300 ml # Bowel Movements 0 Result Diagram: 11/06/16 0447 11/08/16 0420 ROS General: Fatigue, Weakness (resolving), Other (10 point ROS done positives noted) GI: Abdominal Pain (resolved), BM (no BM in 2 days, give Dulcolax suppository this morning) Physical Exam Physical Exam PHYSICAL EXAMINATION GENERAL: obese female who appears to be in no acute distress. alert and awake, HEAD: Normocephalic, atraumatic Facial features appear symmetric. OROPHARYNGEAL: Oropharynx clear NECK: Supple. Trachea midline without deviation. CARDIAC: Regular rhythm, regular rate, no acute chest pain LUNGS: Clear to auscultation bilaterally. No use of accessory muscles on inspiration or expiration. ABDOMEN: Obese, taut, nontender, no organomegaly or masses. Bowel sounds active EXTREMITIES: no edema. Lower extremities warm NEUROLOGICAL: Patient mood and affect appropriate. SKIN:Warm and dry, color pale, pink mucous membranes A/P Assessment and Plan Vital signs reviewed, afebrile, BP 179/72 before a.m. meds Labs reviewed hypokalemia resolved Bowel regimen, BM within 24 hours of admission but none since, milk of Magnesia ordered for this p.m., Continue telemetry, physical therapy pending, patient's up in chair 1. Small bowel obstruction. Appreciate surgical input and consult, patient is able to tolerate solid food without nausea or vomiting, no BM since initial enema after admission, no response from milk of magnesia, Dulcolax suppository given this morning, eval BM before any discharge 2. Hypertension, medical management with her meds 3. History of coronary artery disease., Medical management 4. History of osteoarthritis., Chronic medical management, encouraged some activity as tolerated 5. Chronic pain. , Medical management, 6. Chronic kidney disease., With acute kidney injury Trends are down with hydration, encourage by mouth fluids 7. Morbid obesity. , ambulate as much as possible, increase activity , good nutrition, encourage by mouth fluids Physical therapy, recommends home with home health PT. Case management consult ordered Discussed with patient Discussed with nurse Discussed with Dr. Del Angel, seen on his behalf Discharge planning today or tomorrow Nyla Long Nov 09, 2016 13:21
--- NOTE | 2016-11-09 13:22 | HHI.FF ---
Face to Face Verification Diagnosis: (1) CAD (coronary artery disease) (2) Morbid obesity with BMI of 40.0-44.9, adult (3) CKD (chronic kidney disease), stage III (4) Accelerated hypertension (5) Small bowel obstruction (6) Osteoarthritis Physical Therapy Order: Evaluate and Treat, Improve ambulation, Strength and gait training Occupational Therapy Order: Evaluate and Treat, Improve ADL, Gross motor coordination, Fine motor coordination Home Health Nursing Order: Signs/symptoms of disease process Nursing assessment with vital signs I have seen patient Bronwyn Wilson on 11/09/16. My clinical findings support the need for the requested home health care services because: Ltd mobility - disease progression Limited ability to care for self I certify that my clinical findings support that this patient is homebound because: Unsteady gait/balance Nyla Long Nov 09, 2016 13:22
[2016-11-09 16:00] VITALS: BP 154/65; PULSE 61; RESP 16; TEMP 96.6; O2SAT 97
== END 2016-11-09 16:49 | disposition home or self-care (01) | DRG 389 ==
LOC: NEPE 08:43 → NEDA 14:21 → N07B 17:39
PROVIDERS: ADMIT Specialist; ATTEND Specialist
DX: K56.60 Unspecified intestinal obstruction (principal); N18.4 Chronic kidney disease, stage 4 (severe); N17.9 Acute kidney failure, unspecified; E66.01 Morbid (severe) obesity due to excess calories; J44.9 Chronic obstructive pulmonary disease, unspecified; J45.909 Unspecified asthma, uncomplicated; M19.90 Unspecified osteoarthritis, unspecified site; K21.9 Gastro-esophageal reflux disease without esophagitis; I12.9 Hypertensive chronic kidney disease with stage 1 through stage 4 chronic kidney disease, or unspecified chronic kidney disease; Z96.653 Presence of artificial knee joint, bilateral; I25.10 Atherosclerotic heart disease of native coronary artery without angina pectoris; K57.30 Diverticulosis of large intestine without perforation or abscess without bleeding; E87.6 Hypokalemia; F40.240 Claustrophobia; G89.4 Chronic pain syndrome; N30.90 Cystitis, unspecified without hematuria; E07.9 Disorder of thyroid, unspecified; K59.09 Other constipation; M54.5 Low back pain; I25.2 Old myocardial infarction; Z87.891 Personal history of nicotine dependence
CPT/HCPCS: 74176; 74270; 76937; 80048; 80076; 81001; 82550; 83690; 84484; 85025; 93005; 96361; 96372; 96374; C9113; J0780; J1644; J2405; J2550; J3480; J7030

== ENCOUNTER 2016-11-15 13:58 | Inpatient (IN) | payer MEDICARE, OTHER ==
[~2016-11-15] VITALS: Ht 165.1 cm; Wt 95.2 kg
[~2016-11-15 13:58] MED LIST changes: +ALPR.5 PO; +AMLO5TAB2 PO; -AMLO5TAB22 PO; +CHLO25TA2 PO; -CHLO50TA PO; -DOCU1CAP39 PO; +ERGO2000 PO; -ERGO50000 PO; +LEVO-86 PO; -MORP20SO PO; -NITR.4 SL; -NITR4.9S3 SL; -OXYC1SOL5 PO; +OXYC1TAB35 PO; -SYNT137T PO; -XANA0.5T PO; -Z.0.COMMODE-3:1; -Z.0.WALKERFRONT; +ZOFR4TAB3 SL
[2016-11-15 14:03] VITALS: BP 211/101; PULSE 78; RESP 20; TEMP 98; O2SAT 99
[2016-11-15] MEDS ORDERED: SODIUM CHLORIDE 0.9% FLUSH 5 ML FLUSH IV FLUSH PRN ×3 (14:30→19:15)
--- NOTE | 2016-11-15 14:31 | PD ---
HPI Chief Complaint: Neuro Symptoms/ Deficits Time Seen by Provider: 14:23 Travel History International Travel<30 days: No Contact w/Intl Traveler<30days: No Traveled to known affect area: No History of Present Illness HPI Patient comes in complaining of generalized weakness ongoing since being released from the hospital 6 days ago for small bowel instruction. Patient states symptoms got worse last night. States she felt clammy, having subjective fevers, frontal headache, shaking bilateral hands, not being able to speak words away she wants, left facial tingling, and left lower quadrant abdominal pain. Patient denies any chest pain, shortness of breath, nausea, vomiting, loss or change in bowel or bladder, or back pain. Patient states she took 3 baby aspirin prior to coming to the emergency department with no improvement or symptoms. Denies anything making it worse. Patient also noticed a burning painful rash on her right hip that began last night. Denies anything making it better or worse. Denies any radiation of the pain. PFSH Past Medical History Hx Anticoagulant Therapy: Yes Arthritis: Yes (RA and osteo) Asthma: Yes Heart Rhythm Problems: Yes Cancer: No Cardiac Catheterization: Yes Cardiovascular Problems: Yes High Cholesterol: Yes Chest Pain: Yes Congestive Heart Failure: No Cerebrovascular Accident: Yes Diabetes: No Diminished Hearing: No Endocrine: Yes Gastrointestinal Disorders: Yes (GERD) GERD: Yes Genitourinary: No Hepatitis: Yes (HX JAUNDICE) Hiatal Hernia: Yes Herniated Disk: Yes Hypertension: Yes Immune Disorder: No Inguinal Hernia: Yes Implanted Vascular Access Dvce: Yes Kidney Stones: Yes Medical other: Yes (GOUT) Musculoskeletal: Yes (LEFT SCIATICA, ARTHRITIS, LOW BACK PAIN) Neurologic: No Psychiatric: Yes (CLAUSTRAPHOBIA) Reproductive: No Respiratory: No Myocardial Infarction: Yes Renal Failure: Yes (stage 4) Thyroid Disease: Yes (hypoactive) ?: Not Menopausal: Yes : 6 Para: 6 Past Surgical History Abdominal Surgery: Yes (obstuction x5; gall bladder; ex lap) AICD: No Appendectomy: Yes Body Medical Devices: knees Cardiac Surgery: Yes Cholecystectomy: Yes Coronary Artery Bypass Graft: No Eye Surgery: Yes (CATARACT ) Genitourinary Surgery: Yes (5 BOWEL OBSTRUCTIONS) Gynecologic Surgery: Yes (hysterectomy) Hysterectomy: Yes Joint Replacement: Yes (BILATERAL KNEE) Pacemaker: No Other Surgery: Yes Social History Alcohol Use: No Tobacco Use: No Substance Use: No Allergies-Medications (Allergen,Severity, Reaction): Coded Allergies: lactose (Unverified Allergy, Severe, GI CRAMPING, 11/11/16) penicillin G (Unverified Allergy, Severe, 11/11/16) Sulfa (Sulfonamide Antibiotics) (Unverified Allergy, Intermediate, RESP , 11/11/16) codeine (Unverified Allergy, Intermediate, SOB, 11/11/16) milk (Unverified Allergy, Intermediate, ACHE, 11/11/16) peanut (Unverified Allergy, Intermediate, Swelling, 11/11/16) cinnamon (Unverified Allergy, Unknown, 11/11/16) erythromycin base (Unverified Allergy, Unknown, 11/11/16) Reported Meds & Prescriptions Reported Meds & Active Scripts Active Reported Synthroid (Levothyroxine Sodium) 137 Mcg Tab 137 Mcg PO DAILY Nexium (Esomeprazole DR) 40 Mg Capdr 40 Mg PO DAILY Gabapentin 100 Mg Cap 100 Mg PO HS Chlorthalidone 25 Mg Tab 12.5 Mg PO DAILY Bystolic (Nebivolol) 10 Mg Tab 20 Mg PO DAILY Amlodipine (Amlodipine Besylate) 5 Mg Tab 5 Mg PO DAILY Xanax (Alprazolam) 0.5 Mg Tab 0.5 Mg PO DAILY Vitamin D2 (Ergocalciferol) 2,000 Unit Tab 5,000 Units PO DAILY Oxycodone-Acetaminophen 7.5-325 mg Tab 1 Tab PO Q6H PRN Review of Systems Except as stated in HPI: all other systems reviewed are Neg Physical Exam Narrative GENERAL: Well-developed, overly nourished, in no acute distress, and non-ill appearing. SKIN: Shingles appearing rash noted right hip over approximately dermatome L1-L2 HEAD: Atraumatic. Normocephalic. EYES: Pupils equal and round. EOMI. No scleral icterus. No injection or drainage. ENT: No nasal bleeding or discharge. Mucous membranes pink and moist. NECK: Trachea midline. Supple. No nuclear rigidity. CARDIOVASCULAR: Regular rate and rhythm. Grade 1/6 murmur appreciated. RESPIRATORY: No accessory muscle use. No respiratory distress. Decreased breath sounds throughout. GASTROINTESTINAL: Abdomen soft, nondistended, and no guarding. Hepatic and splenic margins not palpable. Normal bowel sounds 4. No pulsatile mass. Patient reports tenderness to palpation over left lower quadrant. MUSCULOSKELETAL: No obvious deformities. No clubbing. No cyanosis. No edema. Full range of motion. NEUROLOGICAL: Awake and alert. No obvious cranial nerve deficits. Motor grossly within normal limits. Normal speech. PSYCHIATRIC: Appropriate mood and affect; insight and judgment normal. Data Data Last Documented VS Vital Signs Date Time Temp Pulse Resp B/P (MAP) Pulse Ox O2 Delivery O2 Flow Rate FiO2 11/15/16 15:23 Room Air 11/15/16 14:03 98.0 78 20 99 Orders Orders Electrocardiogram (11/15/16 14:17) Complete Blood Count With Diff (11/15/16 14:17) Comprehensive Metabolic Panel (11/15/16 14:17) Prothrombin Time / Inr (Pt) (11/15/16 14:17) Act Partial Throm Time (Ptt) (11/15/16 14:17) Troponin I (11/15/16 14:17) Urinalysis - C+S If Indicated (11/15/16 14:17) Chest, Single Ap (11/15/16 14:17) Ct Brain W/O Iv Contrast(Rout) (11/15/16 14:17) Blood Glucose (11/15/16 14:17) Ecg Monitoring (11/15/16 14:17) Iv Access Insert/Monitor (11/15/16 14:17) Oximetry (11/15/16 14:17) Sodium Chloride 0.9% Flush (Ns Flush) (11/15/16 14:30) Lipase (11/15/16 14:17) Lactic Acid (11/15/16 14:17) Ct Abd/Pel W/O Iv Contrast (11/15/16 14:17) Ckmb (Isoenzyme) Profile (11/15/16 14:17) Blood Culture (11/15/16 14:17) Sodium Chloride 0.9% Flush (Ns Flush) (11/15/16 14:30) Urine Culture (11/15/16 14:40) CKMB (11/15/16 14:35) CKMB% (11/15/16 14:35) Morphine Inj (Morphine Inj) (11/15/16 16:45) Ondansetron Inj (Zofran Inj) (11/15/16 16:45) Sodium Chlorid 0.9% 500 Ml Inj (Ns 500 M (11/15/16 16:45) Aspirin Chew (Aspirin Chew) (11/15/16 17:30) Admit Order (Ed Use Only) (11/15/16 18:26) Acyclovir (Zovirax) (11/15/16 18:30) Labs Laboratory Tests Test 11/15/16 14:35 11/15/16 14:40 White Blood Count 4.5 TH/MM3 Red Blood Count 4.29 MIL/MM3 Hemoglobin 13.4 GM/DL Hematocrit 39.8 % Mean Corpuscular Volume 92.7 FL Mean Corpuscular Hemoglobin 31.2 PG Mean Corpuscular Hemoglobin Concent 33.6 % Red Cell Distribution Width 14.3 % Platelet Count 234 TH/MM3 Mean Platelet Volume 9.5 FL Neutrophils (%) (Auto) 61.3 % Lymphocytes (%) (Auto) 27.6 % Monocytes (%) (Auto) 10.2 % Eosinophils (%) (Auto) 0.5 % Basophils (%) (Auto) 0.4 % Neutrophils # (Auto) 2.8 TH/MM3 Lymphocytes # (Auto) 1.3 TH/MM3 Monocytes # (Auto) 0.5 TH/MM3 Eosinophils # (Auto) 0.0 TH/MM3 Basophils # (Auto) 0.0 TH/MM3 CBC Comment DIFF FINAL Differential Comment Prothrombin Time 10.9 SEC Prothromb Time International Ratio 1.0 RATIO Activated Partial Thromboplast Time 32.2 SEC Blood Urea Nitrogen 18 MG/DL Creatinine 1.61 MG/DL Random Glucose 117 MG/DL Total Protein 7.6 GM/DL Albumin 4.2 GM/DL Calcium Level 8.9 MG/DL Alkaline Phosphatase 89 U/L Aspartate Amino Transf (AST/SGOT) 36 U/L Alanine Aminotransferase (ALT/SGPT) 31 U/L Total Bilirubin 0.7 MG/DL Sodium Level 129 MEQ/L Potassium Level 3.4 MEQ/L Chloride Level 93 MEQ/L Carbon Dioxide Level 26.1 MEQ/L Anion Gap 10 MEQ/L Estimat Glomerular Filtration Rate 31 ML/MIN Lactic Acid Level 1.3 mmol/L Total Creatine Kinase 496 U/L Creatine Kinase MB 3.4 NG/ML Creatine Kinase MB % 0.7 % Troponin I LESS THAN 0.02 NG/ML Lipase 111 U/L Urine Color LIGHT-YELLOW Urine Turbidity CLEAR Urine pH 6.5 Urine Specific Violet 1.005 Urine Protein NEG mg/dL Urine Glucose (UA) NEG mg/dL Urine Ketones NEG mg/dL Urine Occult Blood NEG Urine Nitrite NEG Urine Bilirubin NEG Urine Urobilinogen LESS THAN 2.0 MG/DL Urine Leukocyte Esterase NEG Urine RBC 1 /hpf Urine WBC LESS THAN 1 /hpf Urine Squamous Epithelial Cells 1 /hpf Urine Bacteria OCC /hpf Urine Mucus FEW /lpf Microscopic Urinalysis Comment CATH-CULTURE IND MDM Medical Decision Making Medical Screen Exam Complete: Yes Emergency Medical Condition: Yes Interpretation(s) EKG reviewed by Dr. Quispe shows sinus rhythm with ventricular rate of 69. No STEMI. Chest x-ray read by the radiologist shows: No acute disease. CT the head read by the radiologist shows: There is an area of lucency involving right occipital lobe possibly old, however not present on the 2014 examination and acute ischemic event is not excluded. CT abdomen read by the radiologist shows: Overall stable chronic benign changes. Differential Diagnosis Pneumonia, bowel obstruction, sepsis, bacteremia, UTI, TIA, acute coronary syndrome, generalized weakness, electrolyte abnormality, other Narrative Course Patient was seen and examined. IV is established. Patient placed on alarm security or surveillance monitor. Initial laboratory and radiologic studies were ordered. Patient is reassessed discussed chest x-ray and laboratory findings with her. Patient requesting something for back pain. Patient patient given a dose of morphine and 500 cc of normal saline. Awaiting CT. Patient reassessed status post CT results. Discussed as a possible CVA. Patient denies any new neurological symptoms or improvement of previous ones. Patient is agreeable for admission. All questions were answered. Discussed patient with Dr. Quispe, who is in agreement with plan of care and disposition. Discussed patient with hospitalist who is agreeable to admit patient. Physician Communication Physician Communication [id number] Doherty, who is agreeable to admit the patient. Diagnosis Primary Impression: CVA (cerebral vascular accident) Qualified Codes: I63.9 - Cerebral infarction, unspecified Additional Impression: Shingles Qualified Codes: B02.9 - Zoster without complications Admitting Information Admitting Physician Requests: Admit Condition: Stable Edilberto Berg Nov 15, 2016 14:31
--- NOTE | 2016-11-15 14:38 | RADRPT ---
EXAM DATE/TIME: 11/15/2016 14:31 [facility] COMPARISON: CHEST SINGLE AP, December 19, 2015, 6:32. INDICATIONS : Shortness of breath, general weakness, and lower left chest pain. MEDICAL HISTORY : Myocardial infarction. Hypertension SURGICAL HISTORY : None. ENCOUNTER: Initial ACUITY: 1 week PAIN SCORE: 5/10 LOCATION: Left lower chest FINDINGS: A single view of the chest demonstrates the lungs to be symmetrically aerated without evidence of mas s, infiltrate or effusion. Cardiomegaly. The cardiomediastinal contours are unremarkable. Osseous st ructures are intact. CONCLUSION: No acute disease. Seth Gama MD on November 15, 2016 at 14:36 Board Certified Radiologist. This report was verified electronically.
[2016-11-15 15:38] LABS: BACTERIA, URINE OCC /hpf; BLOOD, URINE NEG (NEG); COMMENT (UR) CATH-CULTURE IND; CULTURE IF INDICATED CATH CULTURE IND; GLUCOSE,URINE NEG (NEG); KETONE, URINE NEG (NEG); MUCUS URINE FEW /lpf (OCC); NITRITE,URINE NEG (NEG); PH, URINE 6.5 (5.0-8.5); SQUAMOUS EPITHELIAL CELL URINE 1 /hpf (0-5); URINE COLOR LIGHT-YELLOW (YELLW/STRAW)
[2016-11-15 16:09] LABS: AUTOMATED NEUTROPHIL # 2.8 TH/MM3 (1.8-7.7); BASOPHIL % 0.4 % (0.0-2.0); EOSINOPHIL % 0.5 % (0.0-4.0); HEMATOCRIT 39.8 % (35.0-46.0); HEMO FLAGS DIFF FINAL; LYMPH % 27.6 % (9.0-44.0); LYMPHOCYTE # 1.3 TH/MM3 (1.0-4.8); MEAN CELL VOLUME 92.7 FL (80.0-100.0); MEAN CORPUSCULAR HEMOGLOBIN 31.2 PG (27.0-34.0); MEAN CORPUSCULAR HGB CONC 33.6 % (32.0-36.0); MONO % 10.2 % (0.0-8.0); NEUT % 61.3 % (16.0-70.0); PLATELET COUNT 234 TH/MM3 (150-450); RED BLOOD COUNT 4.29 MIL/MM3 (4.00-5.30); RED CELL DISTRIBUTION WIDTH 14.3 % (11.6-17.2); WHITE BLOOD COUNT 4.5 TH/MM3 (4.0-11.0)
[2016-11-15 16:10] LABS: ANION GAP 10 MEQ/L (5-15); AST (GOT) 36 U/L (15-37); BICARBONATE 26.1 MEQ/L (21.0-32.0); BLOOD UREA NITROGEN 18 MG/DL (7-18); CHLORIDE 93 MEQ/L (98-107); GLOMERULAR FILTRATION RATE 31 ML/MIN (>89); POTASSIUM 3.4 MEQ/L (3.5-5.1); SODIUM (NA) 129 MEQ/L (136-145)
[2016-11-15 16:11] LABS: ALT (GPT) 31 U/L (10-53)
[2016-11-15 16:14] LABS: APTT (PATIENT) 32.2 SEC (24.3-30.1); PROTHROMBIN TIME - PATIENT 10.9 SEC (9.8-11.6)
[2016-11-15 16:15] LABS: ALKALINE PHOSPHATASE 89 U/L (45-117); CREATINE KINASE 496 U/L (26-192); TOTAL BILIRUBIN ADULT 0.7 MG/DL (0.2-1.0)
[2016-11-15 16:27] LABS: CKMB 3.4 NG/ML (0.5-3.6)
[2016-11-15] MEDS ORDERED: MORPHINE SULFATE 4 MG/ML INJ IV PUSH ONE (16:45)
[2016-11-15] MEDS ORDERED: ONDANSETRON HCL 4 MG/2 ML VIAL IV PUSH ONE (16:45)
[2016-11-15] MEDS ORDERED: SODIUM CHLORID 0.9% 500 ML INJ 500 ML IV ONE (16:45)
--- NOTE | 2016-11-15 17:04 | RADRPT ---
EXAM DATE/TIME: 11/15/2016 16:10 [facility] COMPARISON: CT BRAIN W/O CONTRAST, July 09, 2013, 4:01. INDICATIONS : Left facial numbness and general weakness today. RADIATION DOSE: 52.72 CTDIvol (mGy) MEDICAL HISTORY : Stroke. Cardiovascular disease SURGICAL HISTORY : Hysterectomy. ENCOUNTER: Initial ACUITY: 1 day PAIN SCALE: 0/10 LOCATION: Bilateral head TECHNIQUE: Multiple contiguous axial images were obtained of the head. Using automated exposure control and adj ustment of the mA and/or kV according to patient size, radiation dose was kept as low as reasonably a chievable to obtain optimal diagnostic quality images. DICOM format image data is available electro nically for review and comparison. FINDINGS: here is an area of lucency involving the right occipital lobe not present previously could be ol d infarction, however an acute ischemic event is difficult to exclude. Slight periventricular white m atter changes are seen nonspecific mostly consistent with chronic small vessel ischemic changes. Ther e is no hemorrhage or mass effect. CONCLUSION: There is an area of lucency involving right occipital lobe possibly old, however not present on the 2 014 examination and acute ischemic event is not excluded. Sydney Velasquez MD on November 15, 2016 at 16:56 Board Certified Radiologist. This report was verified electronically.
--- NOTE | 2016-11-15 17:09 | RADRPT ---
EXAM DATE/TIME: 11/15/2016 16:14 [facility] COMPARISON: CT ABDOMEN & PELVIS W/O CONTRAST, November 05, 2016, 13:20. INDICATIONS : Right upper abdomen pain today. ORAL CONTRAST: No oral contrast ingested. RADIATION DOSE: 16.49 CTDIvol (mGy) MEDICAL HISTORY : Stroke. Gastroesophageal reflux disease. Hernia, hiatal. SURGICAL HISTORY : Hysterectomy. Appendectomy.Cholecystectomy. ENCOUNTER: Initial ACUITY: 1 day PAIN SCALE: 6/10 LOCATION: Right upper quadrant TECHNIQUE: Volumetric scanning of the abdomen and pelvis was performed. Using automated exposure control and ad justment of the mA and/or kV according to patient size, radiation dose was kept as low as reasonably achievable to obtain optimal diagnostic quality images. DICOM format image data is available electro nically for review and comparison. FINDINGS: CT Abdomen: The liver, spleen, adrenals are unremarkable. The pancreas is mainly fatty replaced witho ut a focal mass. The right renal pelvis is prominent chronic in nature. Splenic splenules are seen an d there is exophytic cyst coming off the left kidney almost 8-9 mm in size. There is no evidence for any stones in the kidneys or the course of the ureters on either side. There is no hydronephrosis.The re is no evidence for any appreciable pathological adenopathy, free fluid, or bowel obstruction. Chr onic vascular calcifications are present involving the aorta, iliac arteries without any significant stenosis or aneurysmal dilatations for technique. CT pelvis: There is no evidence for mass, abscess formation, or any significant adenopathy within the pelvis. There are bone islands in the left iliac bone and not changed. There are scattered diverticu li mainly in the sigmoid colon without definite signs of diverticulitis. CONCLUSION: Overall stable chronic benign changes. Sydney Velasquez MD on November 15, 2016 at 17:03 Board Certified Radiologist. This report was verified electronically.
[2016-11-15] MEDS ORDERED: ASPIRIN 81 MG CHEW TAB PO ONE (17:30)
[2016-11-15] MEDS ORDERED: ACYCLOVIR 800 MG TAB PO ONE (18:30)
[2016-11-15] MEDS ORDERED: LACTULOSE SYRUP 20 GM/30 ML CUP PO PRN (19:00)
[2016-11-15] MEDS ORDERED: MAGNESIUM HYDROXIDE SUSP 30 ML CUP PO PRN (19:00)
[2016-11-15] MEDS ORDERED: SENNOSIDES 8.6 MG TAB PO PRN (19:00)
[2016-11-15] MEDS ORDERED: BISACODYL 10 MG SUPP RECTAL PRN (19:00)
[2016-11-15] MEDS ORDERED: ONDANSETRON HCL 4 MG/2 ML VIAL IVP PRN (19:00)
[2016-11-15] MEDS ORDERED: ACETAMINOPHEN 325 MG TAB PO PRN (19:00)
[2016-11-15] MEDS ORDERED: NALOXONE HCL 0.4 MG/ML AMP IV PRN (19:00)
[2016-11-15] MEDS ORDERED: SODIUM CHLORIDE 0.9% FLUSH 10 ML FLUSH IV FLUSH PRN (19:00)
[2016-11-15] MEDS ORDERED: LABETALOL HCL 100 MG/20 ML VIAL IV PRN (19:15)
[2016-11-15 19:30] VITALS: BP 179/78; PULSE 69; RESP 20
[2016-11-15] MEDS ORDERED: PILL SPLITTER OTHER PRN (19:30)
[2016-11-15] MEDS: SODIUM CHLOR 0.9% 1000 ML INJ 1,000 ML IV SCH (19:34)
[2016-11-15] MEDS: HEPARIN SODIUM - SQ 10,000 UNITS/ML VIAL SQ SCH (19:35)
--- NOTE | 2016-11-15 19:54 | HHI.PR ---
Objective Objective Results - Vital Signs Date Time Temp Pulse Resp B/P (MAP) Pulse Ox O2 Delivery O2 Flow Rate FiO2 11/15/16 19:30 69 20 179/78 (111) 11/15/16 15:23 Room Air 11/15/16 14:03 98.0 78 20 211/101 (137) 99 (Nyla Long) Result Diagram: 11/15/16 1435 11/15/16 1435 A/P Assessment and Plan [id number] Possible CVA, R/O Shingles rt. hip GERD Hypokalemia Debility, generalized weakness HTN, uncontrolled, accel (Nyla Long) Assessment and Plan pt evaluation done as above chart reviwed dw ER PA kashif ambrosio about plan of care (Mindy Doherty MD) Nyla Long Nov 15, 2016 19:54 Mindy Doherty MD Nov 15, 2016 20:13
[2016-11-15] MEDS ORDERED: POTASSIUM CHLORIDE 10 MEQ CONTROLLED RELEASE TAB PO ONE (20:00)
[2016-11-15 20:08] VITALS: O2SAT 96
[2016-11-15] MEDS ORDERED: ALPRAZolam 0.25 MG TAB PO PRN (20:15)
[2016-11-15 20:30] VITALS: BP 147/63; PULSE 68; RESP 15
[2016-11-15] MEDS: DOCUSATE SODIUM 50 MG/SENNA 8.6 MG TAB PO SCH (21:00)
[2016-11-15] MEDS: SODIUM CHLORIDE 0.9% FLUSH 10 ML FLUSH IV FLUSH SCH (21:00)
--- NOTE | 2016-11-15 21:12 | MH ---
cc: SARA DOHERTY DATE OF ADMISSION 11/15/2016 DATE OF 1940 CHIEF COMPLAINT Generalized weakness, left-sided facial numbness, dysarthria, right hip rash. Travel in the last 30 days, none. HISTORY OF THE PRESENT ILLNESS This is a pleasant, anxious, 76-year-old female who was just released from the hospital six days ago with a small bowel obstruction. She states that she went home but still was having problems with generalized weakness and fatigue. She states that she had not been able to do very much and over the past couple of days she has noticed increased headaches, some possible fevers, some clamminess that started last night and some left facial tingling and numbness. She states that she could not get her words out and had some mild dysarthria. She was unable to hold a cup in her left or right hand but most of her pain has been on the left side, left leg, left hip and left arm and left side of her face. She states that her abdomen is still having some sharp pains that are radiating through especially on the left side but she complains of a rash on her right hip that had just became noticeable yesterday. The patient denies any chest pain. Denies any shortness of breath. She has had a significant history of adhesions in the past and has had treatment for at least five abdominal obstructions. The patient is currently awake, alert, a fair historian but very shaky and nervous with moderate anxiety right now. Her grandchildren are at her side. In the emergency room the patient was given three baby aspirin with no improvement of symptoms. She does note some very painful burning around the rash on her right hip and states that it seems to burn across to the other side. She also noted one spot yesterday on her left leg that was burning but there was no rash present at that time. PAST MEDICAL HISTORY Medical history includes: 1. Osteoarthritis. 2. Rheumatoid arthritis. 3. Asthma. 4. Cardiovascular disease. 5. She has had previous heart catheterizations. 6. Hyperlipidemia. 7. Chest pain. 8. Previous cerebrovascular accident. 9. She is not a diabetic. 10. History of gastroesophageal reflux disease. 11. History of jaundice. 12. Hiatal hernia. 13. Herniated disc. 14. Hypertension. 15. Inguinal hernia. 16. Left leg and left side sciatica. 17. Arthritis. 18. Low back pain. 19. She is claustrophobic. 20. Stage IV renal disease. 21. Previous heart attack. 22. Hypoactive thyroid. PAST SURGICAL HISTORY Surgical history: 1. Gallbladder. 2. Exploratory laparotomy. 3. Appendectomy. 4. Noted five abdominal obstructions. 5. Cholecystectomy. 6. Cardiac surgery. 7. Cataract surgery. 8. Hysterectomy. 9. Bilateral knee replacements. ALLERGIES SULFA, CINNAMON, CODEINE, ERYTHROMYCIN BASED, LACTOSE, MILK, PEANUT, PENICILLIN-G. SOCIAL HISTORY The patient has two grandchildren that live with her. MEDICATIONS Reported medications: 1. Synthroid. 2. Nexium. 3. Gabapentin. 4. Bystolic. 5. Amlodipine. 6. Xanax. 7. Vitamin B12. 8. Oxycodone. 9. Acetaminophen 7.5/325. 10. She also takes chlorthalidone. REVIEW OF SYSTEMS A 12 point review was obtained. Information gathered was clammy, possible fevers, generalized weakness, malaise, fatigue, very weak and shaky upper extremities. Left-sided numbness to the face with some dysarthria. Some abdominal pain that seems to radiate from the right side. Left leg burning and pain. Low back pain. Moderate anxiety. Any other systems I mentioned. Other systems negative or unremarkable. Please note also that she had a bowel movement times two days ago that was normal. PHYSICAL EXAMINATION VITAL SIGNS: Temperature is 98, pulse 78 now 69, respiratory rate 20. Initially blood pressure was 211/101 on admission, it is now 179/78. O2 saturation 99% on room air. GENERAL: Obese white female, looks older than her stated age. Resting on a stretcher. She is currently moderately anxious over her current condition and her symptoms over the past few days. SKIN: Pale, warm and dry. HEENT: Atraumatic. Normocephalic. Pupils equal, round, reactive to light and accommodation. Mucous membranes are dry. There is no scleral icterus. NECK: Thick. Obese. Supple. CARDIOVASCULAR: S1-S2 rhythm is regular. No audible murmurs, rubs, or gallops. Heart sounds are rather distant. ABDOMEN: Soft. Obese. Round. Bowel sounds are soft but present. The patient is passing gas. LUNGS: Are essentially clear in the upper fagan. She does have some diminished sounds in her lower bases, left greater than right for the diminished sounds. MUSCULOSKELETAL: She is moving her extremities on command. Her hand cook fish eggs are equal. She can overcome resistance very briefly in her lower extremities. She is very weak, generalized. No obvious deformities. NEUROLOGIC: She is moderately anxious. Speech is clear and understandable. Equal hand cook fish eggs. PSYCHIATRIC: Mood and affect are appropriate for her current condition. LABORATORY DATA Diagnostic data, WBC count 4.5, red blood cell 4.25, hemoglobin 13.4, hematocrit 39.8, platelet count 234. Monocyte count 10.2. Chemistry, sodium 129, potassium 3.4, chloride 93, creatinine 1.61. GFR 31, glucose is 117. Lactic acid 1.3. Total creatine kinase 496. CK2 3.4. Troponin less than 0.02. Urine is light yellow, clear, pH is 6.5, specific gravity 1.005. Negative for glucose, protein, ketones, occult blood, nitrite, bilirubin. Urobilinogen less than 2. Negative leukocyte esterase. She does have occasional bacteria, few mucus. Urine cath culture has been ordered. She has also had blood cultures that are pending. IMAGING Imaging studies show abdomen and pelvis CT scan to be overall stable, chronic, benign changes. A chest x-ray aerated without evidence of mass, infiltrate or effusion. Head CT scan, she has an area of lucency involving the right occipital lobe, this is possibly old, however, was not present on the 2014 examination and an ischemic acute event cannot be excluded. ASSESSMENT AND PLAN 1. Possible cerebrovascular accident, rule out. 2. Gastroesophageal reflux disease. 3. Shingles right hip. 4. Hypokalemia. 5. Moderate anxiety, acute on chronic. 6. Generalized weakness and fatigue. 7. Debility. 8. Hypertension, accelerated, uncontrolled. Our plan, stroke will be ruled out. She will have an MRI MRA of the brain. A bedside swallow check. Bed rest. We will consult neurology for their expert opinion. We will give her labetalol 10 milligrams IV q.2h as needed for uncontrolled hypertension. We would like to maintain her less than 180, less than 95 diastolic. She will have a daily aspirin. She has been admitted inpatient certification. Her home medications as warranted have been restarted. She will have neurological checks. Heart healthy diet when she is able to eat. We will check her swallow first. Deep venous thrombosis prophylaxis sequential compression devices also with heparin. Stool softeners. Bowel regimen. We will monitor this very closely due to her significant history of small bowel obstructions. IV fluids for gentle hydration. Constant ECG monitoring. For her shingles we will start her on Zovirax 800 milligrams five times a day. We will get that started tonight. The patient is going to need pain management and meds for her anxiety. This has all been explained to her that we have several different medical issues we need to rule out and to take care of. She understands the process. We discussed code status briefly and her wishes. She requests full code, full aggressive care and we will follow her wishes. The patient will receive potassium supplement tonight. We will recheck her labs in the morning. Dictated by: KENYATTA Tavares Sara Doherty MD JP/MOSES /7:35 PM /8:29 PM pt was seen and examined as above by undersigned chart was reviewed dw pt kashif ambrosio about above note and plan of care MTDD
[2016-11-15] MEDS ORDERED: LORazepam 2 MG/ML VIAL ONE (21:21)
[2016-11-15 21:30] VITALS: BP 187/82; PULSE 63; RESP 21; O2SAT 96
--- NOTE | 2016-11-15 21:46 | EKG ---
Date Performed: 11/15/2016 Time Performed: 14:23:09 PTAGE: 76 years EKG: Sinus rhythm BORDERLINE LEFT AXIS DEVIATION NONSPECIFIC T-WAVE ABNORMALITY BORDERLINE ECG PREVIOUS TRACING : 11/05/2016 12.55 No significant change from previous tracing noted. DOCTOR: Jens Chatman Interpretating Date/Time 11/15/2016 21:44:00
[2016-11-15] MEDS ORDERED: LORazepam 2 MG/ML VIAL IV SCH (22:00)
[2016-11-15] MEDS ORDERED: LORazepam 2 MG/ML VIAL IV PRN (22:00)
--- NOTE | 2016-11-15 22:07 | RADRPT ---
EXAM DATE/TIME: 11/15/2016 21:30 [facility] COMPARISON: CT BRAIN W/O CONTRAST, November 15, 2016, 16:10. INDICATIONS : Right side jaw pain. MEDICAL HISTORY : Renal insufficiency, chronic. Hypertension. SURGICAL HISTORY : Cholecystectomy. Hysterectomy. Total knee replacement, right. TKR,left ENCOUNTER: Initial ACUITY: 1 day PAIN SCORE: 0/10 LOCATION: cranial TECHNIQUE: Multiplanar, multisequence MRI of the brain was performed without contrast. FINDINGS: There is no evidence for intracranial hemorrhage, mass effect, mass lesions, edema, or extra-axial fl uid collections. There are no signs of acute infarction for technique. The diffusion portion is unre markable. Slight degree of brain atrophy is seen. Slight periventricular white matter changes are see n nonspecific mostly consistent with chronic small vessel ischemic changes. The area of lucency seen on the patient's CT examination in the right occipital lobe was artifactually created due to volume a veraging. CONCLUSION: Chronic atrophic and small vessel ischemic changes without any evidence for acute hem orrhage or mass effect. Sydney Velasquez MD on November 15, 2016 at 22:03 Board Certified Radiologist. This report was verified electronically.
--- NOTE | 2016-11-15 22:14 | RADRPT ---
EXAM DATE/TIME: 11/15/2016 21:30 [facility] COMPARISON: No previous studies available for comparison. INDICATIONS : Right side jaw pain. MEDICAL HISTORY : Renal insufficiency, chronic. Hypertension. SURGICAL HISTORY : Hysterectomy. Cholecystectomy. Total knee replacement, left. TKR,right ENCOUNTER: Initial ACUITY: 1 day PAIN SCORE: 0/10 LOCATION: cranial Please note a normal MRA of the brain does not entirely exclude the possibility of a small aneurysm, nor the possibility of distal intracranial vessel disease. TECHNIQUE: 3D time of flight MRA was performed. Source images, multiplanar STS MIP, and 3D volume MIP reconstru ctions were reviewed. FINDINGS: There is excellent visualization of the major intracranial arteries out to the second-order branch ve ssels. There is no evidence for aneurysm, vessel truncation or stenosis, and no evidence for vascula r malformation. CONCLUSION: Normal examination. Sydney Velasquez MD on November 15, 2016 at 22:11 Board Certified Radiologist. This report was verified electronically.
[2016-11-15] MEDS: ACYCLOVIR 800 MG TAB PO SCH (23:47)
[2016-11-16] VITALS (10 sets, daily range): BP systolic 120–155; BP diastolic 68–89; PULSE 63–76; RESP 16–20; TEMP 97.7–99; O2SAT 95–99
[2016-11-16] MEDS: GABAPENTIN 100 MG CAP PO SCH ×2 (00:54→20:50)
[2016-11-16 04:49] LABS: ANION GAP 11 MEQ/L (5-15); BICARBONATE 27.9 MEQ/L (21.0-32.0); BLOOD UREA NITROGEN 15 MG/DL (7-18); CHLORIDE 100 MEQ/L (98-107); GLOMERULAR FILTRATION RATE 38 ML/MIN (>89); SODIUM (NA) 139 MEQ/L (136-145)
[2016-11-16] MEDS: LEVOTHYROXINE SODIUM 25 MCG TAB PO SCH (07:32)
[2016-11-16] MEDS: LEVOTHYROXINE SODIUM 112 MCG TAB PO SCH (07:33)
[2016-11-16] MEDS: ACYCLOVIR 800 MG TAB PO SCH ×5 (07:33→20:49)
[2016-11-16] MEDS: HYDROmorphone HCL PF 1 MG/ML VIAL IV PUSH PRN ×2 (07:42→12:19)
[2016-11-16] MEDS: HEPARIN SODIUM - SQ 10,000 UNITS/ML VIAL SQ SCH ×2 (07:42→18:26)
[2016-11-16] MEDS: DOCUSATE SODIUM 50 MG/SENNA 8.6 MG TAB PO SCH ×2 (08:00→20:49)
[2016-11-16] MEDS: CHOLECALCIFEROL (VIT D3) 5000 UNIT CAP PO SCH (08:00)
[2016-11-16] MEDS: amLODIPine BESYLATE 5 MG TAB PO SCH (08:01)
[2016-11-16] MEDS: PANTOPRAZOLE SOD 40 MG DELAYED RELEASE TAB PO SCH (08:01)
[2016-11-16] MEDS: POTASSIUM CHLORIDE 20 MEQ CONTROLLED RELEASE TAB PO SCH ×2 (08:01→10:06)
[2016-11-16] MEDS: SODIUM CHLORIDE 0.9% FLUSH 10 ML FLUSH IV FLUSH SCH ×2 (08:02→09:00)
[2016-11-16] MEDS: CHLORTHALIDONE 50 MG TAB PO SCH (08:02)
[2016-11-16] MEDS: ASPIRIN 81 MG CHEW TAB PO SCH (08:02)
[2016-11-16] MEDS: NEBIVOLOL 10 MG TAB PO SCH (08:02)
--- NOTE | 2016-11-16 09:29 | HHI.PR ---
Subjective Remarks Resting in the bed Alert oriented Seems to be less anxious today and feeling somewhat better Right hip pain with new onset shingles (Nyla Long) Objective Objective Results - Vital Signs Date Time Temp Pulse Resp B/P (MAP) Pulse Ox O2 Delivery O2 Flow Rate FiO2 11/16/16 08:54 97.8 76 16 155/69 (97) 99 Room Air 11/16/16 08:18 96 21 11/16/16 08:12 16 11/16/16 07:35 97.9 72 16 130/72 (91) 99 Room Air 11/16/16 07:15 81 16 99 Room Air 11/16/16 02:00 65 18 141/78 (99) 95 Room Air 11/15/16 21:30 63 21 187/82 (117) 96 Room Air 11/15/16 20:30 68 15 147/63 (91) 11/15/16 20:08 96 11/15/16 19:30 69 20 179/78 (111) 11/15/16 15:23 Room Air 11/15/16 14:03 98.0 78 20 211/101 (137) 99 I/O 11/15/16 11/15/16 11/15/16 11/16/16 11/16/16 11/16/16 07:00 15:00 23:00 07:00 15:00 23:00 Intake Total 500 ml Balance 500 ml Intake IV Total 500 ml (Nyla Long) Result Diagram: 11/15/16 1435 11/16/16 0321 ROS General: Fatigue, Weakness, Other (10 point ROS done positives noted) Neuro/MS: Other (anxiety more controlled) Skin: Rash (new onset shingles right hip), Other (Nyla Long) Physical Exam Physical Exam PHYSICAL EXAMINATION GENERAL: This is a obese elderly female who appears to be in no acute distress. She is alert and awake, HEAD: Normocephalic, no obvious rash noted on face Facial features appear symmetric. OROPHARYNGEAL: Oropharynx without erythema or edema. NECK: Supple. No nuchal rigidity or lymphadenopathy. Trachea midline without deviation. CARDIAC: Regular rhythm, regular rate, S1 and S2 are heard. LUNGS: Mild diminished with low volumes to auscultation bilaterally. No use of accessory muscles on inspiration or expiration. ABDOMEN: Round obese Soft, nontender, no organomegaly or masses. Bowel sounds are heard in all four quadrants. Actively voiding without problems EXTREMITIES: no edema. Pulses equal bilateral. NEUROLOGICAL: Patient mood and affect out anxiety SKIN:Warm and dry, rash shingles right hip (Nyla Long) A/P Assessment and Plan Possible CVA, R/O Neuro consult today, patient has no generalized weakness noted, mild numbness on the left side of her face close to her mouth, states initially she felt like it affected her speech but seems to be speaking clear this morning Shingles rt. hip New onset this is probable day 2 or day 3, placed on meds initiated last night acyclovir, pain management, acute on chronic GERD PPI, medical management Hypokalemia Given more by mouth potassium, 40 mEq 1 dose, she will recheck BMP in the morning Debility, generalized weakness Patient just recently went home from hospital and states that she has been very weak since going home. Does try to get up and move around some, but balance is an issue she states. Physical therapy to evaluate HTN, uncontrolled, accel Medical management blood pressure is down now under control Discussed with patient Discussed with nurse Discussed with Dr. olivia, seen on his behalf Discharge planning once neuro sees and evaluates plan a care Possible tomorrow (Nyla Long) Assessment and Plan pt is seen & examined d/w PT d/w Nyla Neuro Input appreciated PT eval resume analgesic /home meds ss for d/c planning will f/u (Kamla Olivia MD) Nyla Long Nov 16, 2016 09:28 Kamla Olivia MD Nov 16, 2016 13:06
--- NOTE | 2016-11-16 10:20 | MB ---
cc: TIFFANY COREY M.D. DATE OF CONSULTATION: 11/16/2016 HISTORY OF PRESENT ILLNESS A 76-year-old admitted with generalized weakness. She was in the hospital very recently with a small bowel obstruction, discharged about 6 days ago. She continued not to feel well and developed fatigue, generalized weakness and some facial tingling and numbness. She started having some generalized and nonspecific pain. She brings to my attention about an area of burning, discomfort without any rash in the left medial proximal calf region near the knee. PAST MEDICAL HISTORY She has a history of: 1. Rheumatoid arthritis. 2. Asthma. 3. Hyperlipidemia. 4. Hypertension. 5. Bilateral knee replacements. 6. Heart surgery, see H&P. MEDICATION Reported medications were: 1. B12. 2. Xanax. 3. Amlodipine. 4. Bystolic. 5. Gabapentin. 6. Synthroid. 7. Nexium. 8. Oxycodone. EXAMINATION On exam the patient is alert, pleasant, oriented. Mentation is normal. Ocular movements and visual fagan are full. No facial weakness. She has good strength essentially throughout and reflexes were 1-2+, present at the ankles and plantar responses were flexor. She has a shingles rash on the right-side at T12 level nearly reaching the groin region. She also has a couple of spots, one in the left medial knee and one on the right outer knee/thigh, which may be subacute areas of shingles. ANCILLARY DATA Reviewed. CT of brain raised the possibility of a right occipital abnormality but the MRI did not demonstrate these. Therefore, this finding is probably artifactual. There is small vessel chronic disease and no acute findings on MRI. ASSESSMENT 1. Generalized weakness, fatigue and some nonspecific complaints along with an obvious zoster on the right T12. Some other small lesions seen on the left and right leg, possibly also related to the zoster. Therefore, this is likely the main diagnosis. 2. Multiple chronic medical problems. She was started on Acyclovir and for now agree with p.o. acyclovir but if there is any more suggestion of generalization of her shingles, then we will need to start intravenous acyclovir. No evidence of acute cerebrovascular event. I will follow the neurological care. MD SHAQUILLE Melchor/TLL /9:42 AM /9:52 AM
[2016-11-16] MEDS: oxyCODONE/ACETAMINOPHEN 7.5 MG/325 MG TAB PO PRN ×2 (15:29→20:50)
[2016-11-16] MEDS: SODIUM CHLOR 0.9% 1000 ML INJ 1,000 ML IV SCH (18:26)
[2016-11-17] VITALS (8 sets, daily range): BP systolic 129–162; BP diastolic 63–79; PULSE 58–68; RESP 16–20; TEMP 97.4–98.2; O2SAT 93–97
[2016-11-17] MEDS: oxyCODONE/ACETAMINOPHEN 7.5 MG/325 MG TAB PO PRN ×4 (02:29→21:29)
[2016-11-17 05:32] LABS: HEMATOCRIT 38.4 % (35.0-46.0); MEAN CELL VOLUME 92.5 FL (80.0-100.0); MEAN CORPUSCULAR HGB CONC 33.5 % (32.0-36.0); PLATELET COUNT 227 TH/MM3 (150-450); RED BLOOD COUNT 4.15 MIL/MM3 (4.00-5.30); RED CELL DISTRIBUTION WIDTH 14.1 % (11.6-17.2); REVIEW FLAG FINAL; WHITE BLOOD COUNT 3.6 TH/MM3 (4.0-11.0)
[2016-11-17 05:57] LABS: BICARBONATE 27.1 MEQ/L (21.0-32.0)
[2016-11-17 06:01] LABS: POTASSIUM 2.9 MEQ/L (3.5-5.1)
[2016-11-17] MEDS ORDERED: POTASSIUM CHLORIDE 20 MEQ CONTROLLED RELEASE TAB PO SCH (06:45)
[2016-11-17] MEDS ORDERED: POTASSIUM CHLOR 20 MEQ PREMIX 100 ML IV SCH (07:00)
[2016-11-17] MEDS: HEPARIN SODIUM - SQ 10,000 UNITS/ML VIAL SQ SCH ×2 (07:39→18:36)
[2016-11-17] MEDS: LEVOTHYROXINE SODIUM 112 MCG TAB PO SCH (07:40)
[2016-11-17] MEDS: LEVOTHYROXINE SODIUM 25 MCG TAB PO SCH (07:40)
[2016-11-17] MEDS: ACYCLOVIR 800 MG TAB PO SCH ×5 (08:26→21:29)
[2016-11-17] MEDS: PANTOPRAZOLE SOD 40 MG DELAYED RELEASE TAB PO SCH (08:26)
[2016-11-17] MEDS: CHLORTHALIDONE 50 MG TAB PO SCH ×2 (08:28→09:00)
[2016-11-17] MEDS: CHOLECALCIFEROL (VIT D3) 5000 UNIT CAP PO SCH (08:29)
[2016-11-17] MEDS: NEBIVOLOL 10 MG TAB PO SCH (08:29)
[2016-11-17] MEDS: DOCUSATE SODIUM 50 MG/SENNA 8.6 MG TAB PO SCH ×2 (08:29→21:00)
[2016-11-17] MEDS: ASPIRIN 81 MG CHEW TAB PO SCH (08:30)
[2016-11-17] MEDS: amLODIPine BESYLATE 5 MG TAB PO SCH (08:31)
[2016-11-17] MEDS: ALPRAZolam 0.5 MG TAB PO SCH (08:31)
[2016-11-17] MEDS: SODIUM CHLORIDE 0.9% FLUSH 10 ML FLUSH IV FLUSH SCH ×2 (09:00→21:00)
--- NOTE | 2016-11-17 11:33 | HHI.PR ---
Subjective Subjective Remarks Right flank and leg pain improving Overall feeling a little better but still weak No chest pain No shortness of breath No fever Review of Systems Constitutional Constitutional Remarks 12 point review of systems completed, negative except as noted above Vitals/Results Vital Signs Vital Signs Date Time Temp Pulse Resp B/P (MAP) Pulse Ox O2 Delivery O2 Flow Rate FiO2 11/17/16 08:34 97.7 62 20 143/67 (92) 96 11/17/16 04:00 98.1 62 18 143/68 (93) 93 11/17/16 00:00 97.4 58 18 137/79 (98) 97 11/16/16 20:00 97.7 63 18 148/89 (108) 97 11/16/16 19:00 64 11/16/16 16:09 99.0 70 20 153/73 (99) 97 11/16/16 14:15 97.8 76 16 122/76 (91) 98 11/16/16 13:42 97.8 68 16 120/76 (91) 98 Room Air 11/16/16 12:49 16 11/16/16 12:19 97.9 68 16 121/68 (85) 98 Room Air CBC/BMP: 11/17/16 0414 11/17/16 0414 Lab Results Laboratory Tests Test 11/17/16 04:14 White Blood Count 3.6 TH/MM3 Red Blood Count 4.15 MIL/MM3 Hemoglobin 12.9 GM/DL Hematocrit 38.4 % Mean Corpuscular Volume 92.5 FL Mean Corpuscular Hemoglobin 31.0 PG Mean Corpuscular Hemoglobin Concent 33.5 % Red Cell Distribution Width 14.1 % Platelet Count 227 TH/MM3 Mean Platelet Volume 9.1 FL Blood Urea Nitrogen 14 MG/DL Creatinine 1.29 MG/DL Random Glucose 99 MG/DL Calcium Level 8.6 MG/DL Sodium Level 135 MEQ/L Potassium Level 2.9 MEQ/L Chloride Level 99 MEQ/L Carbon Dioxide Level 27.1 MEQ/L Anion Gap 9 MEQ/L Estimat Glomerular Filtration Rate 40 ML/MIN Physical Exam General General Appearance: Well Developed, No Acute Distress, Comfortable, Obese Eyes Eye Exam: Pupils Equal, Pupils Reactive Ears & Nose Ears & Nose Exam: Nasal Mucosa [place] Throat Throat Exam: Oral Mucosa [place] & Moist Neck Neck Exam: Neck Supple, Trachea Midline Pulmonary Resp Exam: Clear Bilaterally, No Distress Cardiology CV Exam: Regular Gastrointestinal/Abdomen GI Exam: Soft, Non-Tender, Bowel Sounds Present, Non-Distended Musculoskeletal MS Exam: Joints Intact Integumentary Skin Remarks Shingles lesions to right hip area Extremeties Extremities Exam: No Edema, Pedal Pulses Palpable Neurologic Neuro Exam: Alert, Awake, Oriented, Speech Clear, Moving All Extremities, No Focal Deficits VTE Prophylaxis VTE Prophylaxis Meds: Heparin PUD Prophylasis PUD Prophylaxis: Protonix Assessment/Plan Assessment/Plan Left facial tingling, negative for stroke, no TIA weakness -Appreciate neurology input, doesn't believe pt. has TIA or stroke -continue with PT, recommend HHC Shingles right hip -Continue acyclovir -Continue gabapentin GERD -PPI, medical management Hypokalemia -K 2.9, replace today -repeat in am Debility, generalized weakness -PT eval -CM consult for HHC HTN, uncontrolled, better now -continue home meds Renal ins -improved -continue IVF Heparin for DVT prophylaxis PPI for GI prophylaxis CM for dc planning plan to dc tomorrow Labs in am Discussed with patient Discussed with nurse Discussed with Dr. olivia, This patient was seen by myself and Dr. Olivia, this note is written on his behalf Marni Mesa Nov 17, 2016 11:33
[2016-11-17] MEDS: SODIUM CHLOR 0.9% 1000 ML INJ 1,000 ML IV SCH (15:07)
[2016-11-17] MEDS: HYDROmorphone HCL PF 1 MG/ML VIAL IV PUSH PRN ×2 (17:32→23:23)
--- NOTE | 2016-11-17 21:13 | HHI.PR ---
Review/Management Daily Summary 11/17 briefly seen no lateralizing neuro deficits right T12-L1 shingles with pain increasing might increase gabapentin Subjective Subjective Comments No acute events reported No headache Active Medications Current Medications Medications (Trade) Dose Ordered Sig/Nelson Route Start Time Stop Time Status Last Admin (NS Flush) 2 ml UNSCH PRN IV FLUSH 11/15/16 14:30 (NS Flush) 2 ml UNSCH PRN IV FLUSH 11/15/16 14:30 Sodium Chloride 1,000 ml @ 50 mls/hr Q20H IV 11/15/16 18:58 11/17/16 15:07 (NS Flush) 2 ml UNSCH PRN IV FLUSH 11/15/16 19:00 (NS Flush) 2 ml BID IV FLUSH 11/15/16 21:00 (Tylenol) 650 mg Q4H PRN PO 11/15/16 19:00 (Zofran Inj) 4 mg Q6H PRN IVP 11/15/16 19:00 (Heparin Inj) 5,000 units Q12H SQ 11/15/16 19:00 11/17/16 18:36 (Narcan Inj) 0.4 mg UNSCH PRN IV 11/15/16 19:00 (Zo-Colace) 1 tab BID PO 11/15/16 21:00 11/17/16 08:29 (Milk Of Magnesia Liq) 30 ml Q12H PRN PO 11/15/16 19:00 (Senokot) 17.2 mg Q12H PRN PO 11/15/16 19:00 (Dulcolax Supp) 10 mg DAILY PRN RECTAL 11/15/16 19:00 (Lactulose Liq) 30 ml DAILY PRN PO 11/15/16 19:00 (Norvasc) 5 mg DAILY PO 11/16/16 09:00 11/17/16 08:31 (Neurontin) 100 mg HS PO 11/15/16 21:00 11/16/16 20:50 (Bystolic) 20 mg DAILY PO 11/16/16 09:00 11/17/16 08:29 (Hygroton) 12.5 mg DAILY PO 11/16/16 09:00 11/16/16 08:02 (Vitamin D3) 5,000 units DAILY PO 11/16/16 09:00 11/17/16 08:29 (Protonix) 40 mg DAILY PO 11/16/16 09:00 11/17/16 08:26 (Synthroid) 112 mcg DAILY@0600 PO 11/16/16 06:00 11/17/16 07:40 (NS Flush) 2 ml UNSCH PRN IV FLUSH 11/15/16 19:15 (Aspirin Chew) 162 mg DAILY PO 11/16/16 09:00 11/17/16 08:30 (Synthroid) 25 mcg DAILY@0600 PO 11/16/16 06:00 11/17/16 07:40 (Pill Splitter) 1 ea UNSCH PRN OTHER 11/15/16 19:30 (Zovirax) 800 mg 5 TIMES A DAY PO 11/15/16 22:00 11/17/16 17:19 (Dilaudid Pf Inj) 0.5 mg Q4H PRN IV PUSH 11/15/16 20:15 11/17/16 17:32 (Xanax) 0.25 mg Q6H PRN PO 11/15/16 20:15 (Xanax) 0.5 mg DAILY PO 11/17/16 09:00 11/17/16 08:31 (Percocet 7.5-325 Mg) 1 tab Q6H PRN PO 11/16/16 13:15 11/17/16 16:09 (KCl) 20 meq DAILY PO 11/18/16 09:00 Allergies Allergies Coded Allergies lactose (Unverified Allergy, Severe, GI CRAMPING, 11/11/16) penicillin G (Unverified Allergy, Severe, 11/11/16) Sulfa (Sulfonamide Antibiotics) (Unverified Allergy, Intermediate, RESP , 11/11) codeine (Unverified Allergy, Intermediate, SOB, 11/11/16) milk (Unverified Allergy, Intermediate, ACHE, 11/11/16) peanut (Unverified Allergy, Intermediate, Swelling, 11/11/16) cinnamon (Unverified Allergy, Unknown, 11/11/16) erythromycin base (Unverified Allergy, Unknown, 11/11/16) Exam I&O / VS 11/17/16 11/17/16 11/18/16 15:00 23:00 07:00 Intake Total 360 ml 1752 ml Balance 360 ml 1752 ml Intake Oral 360 ml IV Total 1752 ml # Voids 3 3 # Bowel Movements 2 Vital Signs Date Time Temp Pulse Resp B/P (MAP) Pulse Ox O2 Delivery O2 Flow Rate FiO2 11/17/16 21:05 97.9 67 20 136/63 (87) 95 11/17/16 15:58 97.9 64 20 161/72 (101) 97 11/17/16 14:32 97.8 63 20 129/66 (87) 97 11/17/16 08:34 97.7 62 20 143/67 (92) 96 11/17/16 04:00 98.1 62 18 143/68 (93) 93 11/17/16 00:00 97.4 58 18 137/79 (98) 97 Objective Micro and Labs Laboratory Tests Test 11/17/16 04:14 White Blood Count 3.6 Red Blood Count 4.15 Hemoglobin 12.9 Hematocrit 38.4 Mean Corpuscular Volume 92.5 Mean Corpuscular Hemoglobin 31.0 Mean Corpuscular Hemoglobin Concent 33.5 Red Cell Distribution Width 14.1 Platelet Count 227 Mean Platelet Volume 9.1 Blood Urea Nitrogen 14 Creatinine 1.29 Random Glucose 99 Calcium Level 8.6 Sodium Level 135 Potassium Level 2.9 Chloride Level 99 Carbon Dioxide Level 27.1 Anion Gap 9 Estimat Glomerular Filtration Rate 40 Date/Time Source Procedure Growth Status 11/15/16 14:35 Blood Peripheral Aerobic Blood Culture - Preliminary NO GROWTH IN 2 DAYS Resulted 11/15/16 14:35 Blood Peripheral Anaerobic Blood Culture - Preliminary NO GROWTH IN 2 DAYS Resulted 11/15/16 14:40 Urine Catheterized Urine Urine Culture - Final 50-100,000 CFU/ML MIXED GRAM POSITIVE... Complete Deion Osman MD Nov 17, 2016 21:13
[2016-11-17] MEDS: GABAPENTIN 100 MG CAP PO SCH (21:29)
[2016-11-18] VITALS (7 sets, daily range): BP systolic 132–196; BP diastolic 58–84; PULSE 62–80; RESP 18; TEMP 97.3–98.2; O2SAT 95–98
[2016-11-18] MEDS: oxyCODONE/ACETAMINOPHEN 7.5 MG/325 MG TAB PO PRN ×5 (02:29→20:55)
[2016-11-18] MEDS: LEVOTHYROXINE SODIUM 112 MCG TAB PO SCH (06:04)
[2016-11-18] MEDS: SODIUM CHLOR 0.9% 1000 ML INJ 1,000 ML IV SCH (06:04)
[2016-11-18] MEDS: LEVOTHYROXINE SODIUM 25 MCG TAB PO SCH (06:04)
[2016-11-18] MEDS: HEPARIN SODIUM - SQ 10,000 UNITS/ML VIAL SQ SCH ×2 (06:04→18:11)
[2016-11-18] MEDS: ACYCLOVIR 800 MG TAB PO SCH ×5 (06:04→20:54)
[2016-11-18] MEDS: HYDROmorphone HCL PF 1 MG/ML VIAL IV PUSH PRN (06:05)
[2016-11-18] MEDS: ALPRAZolam 0.5 MG TAB PO SCH (09:00)
[2016-11-18] MEDS: CHLORTHALIDONE 50 MG TAB PO SCH (09:00)
[2016-11-18] MEDS: PANTOPRAZOLE SOD 40 MG DELAYED RELEASE TAB PO SCH (09:29)
[2016-11-18] MEDS: NEBIVOLOL 10 MG TAB PO SCH (09:29)
[2016-11-18] MEDS: amLODIPine BESYLATE 5 MG TAB PO SCH (09:31)
[2016-11-18] MEDS: CHOLECALCIFEROL (VIT D3) 5000 UNIT CAP PO SCH (09:32)
[2016-11-18] MEDS: ASPIRIN 81 MG CHEW TAB PO SCH (09:36)
[2016-11-18] MEDS: DOCUSATE SODIUM 50 MG/SENNA 8.6 MG TAB PO SCH ×2 (09:37→20:54)
[2016-11-18] MEDS: POTASSIUM CHLORIDE 20 MEQ CONTROLLED RELEASE TAB PO SCH (09:37)
[2016-11-18] MEDS: GABAPENTIN 100 MG CAP PO SCH ×2 (09:37→20:54)
[2016-11-18] MEDS: SODIUM CHLORIDE 0.9% FLUSH 10 ML FLUSH IV FLUSH SCH ×2 (09:37→20:54)
--- NOTE | 2016-11-18 12:25 | HHI.PR ---
Subjective Subjective Remarks c/o right flank pain, worst today itching over left scalp rash under right breast eating okay no cp no sob no fever Review of Systems Constitutional Constitutional Remarks 12 point review of systems completed, negative except as noted above Vitals/Results Vital Signs Vital Signs Date Time Temp Pulse Resp B/P (MAP) Pulse Ox O2 Delivery O2 Flow Rate FiO2 11/18/16 12:14 98.1 65 18 137/69 (91) 95 11/18/16 08:04 98.1 64 18 154/70 (98) 98 11/18/16 06:10 97.3 64 18 132/58 (82) 95 11/18/16 02:23 80 11/17/16 23:28 98.2 68 18 162/76 (104) 97 11/17/16 21:05 97.9 67 20 136/63 (87) 95 11/17/16 15:58 97.9 64 20 161/72 (101) 97 11/17/16 14:32 97.8 63 20 129/66 (87) 97 CBC/BMP: 11/17/16 0414 11/17/16 0414 Physical Exam General General Appearance: Well Developed, No Acute Distress, Comfortable, Obese Eyes Eye Exam: Pupils Equal, Pupils Reactive Ears & Nose Ears & Nose Exam: Nasal Mucosa [place] Throat Throat Exam: Oral Mucosa [place] & Moist Neck Neck Exam: Neck Supple, Trachea Midline Pulmonary Resp Exam: Clear Bilaterally, No Distress Cardiology CV Exam: Regular Gastrointestinal/Abdomen GI Exam: Soft, Non-Tender, Bowel Sounds Present, Non-Distended Musculoskeletal MS Exam: Joints Intact Integumentary Skin Remarks Shingles lesions to right hip area erythematous, scaly rash over left base of neck and scalp, ? eczema pink flat rash under right breast Extremeties Extremities Exam: No Edema, Pedal Pulses Palpable Neurologic Neuro Exam: Alert, Awake, Oriented, Speech Clear, Moving All Extremities, No Focal Deficits VTE Prophylaxis VTE Prophylaxis Meds: Heparin PUD Prophylasis PUD Prophylaxis: Protonix Assessment/Plan Assessment/Plan Left facial tingling, negative for stroke, no TIA weakness -Appreciate neurology input, doesn't believe pt. has TIA or stroke -continue with PT Shingles right hip -Continue acyclovir -Continue gabapentin, inc to 100 mg po TID Rash left neck, eczema fungal rash under right breast -Nystatin powder -Hydrocortisone cream -Benadryl PRN GERD -PPI, medical management Hypokalemia -BMP now Debility, generalized weakness -PT eval -CM consult for HHC HTN, uncontrolled, better now -continue home meds Renal ins -improved -continue IVF Heparin for DVT prophylaxis PPI for GI prophylaxis CM for HHC, arrangements made Poss dc today Discussed with patient Discussed with nurse Discussed with Dr. olivia, This patient was seen by myself and Dr. Olivia, this note is written on his behalf Marni Mesa Nov 18, 2016 12:25
[2016-11-18] MEDS ORDERED: diphenhydrAMINE HCL 25 MG CAP PO PRN (12:30)
[2016-11-18] MEDS: NYSTATIN 100,000 U/GM PWD 15 GM BTL TOPICAL SCH ×2 (14:00→20:55)
[2016-11-18] MEDS: HYDROCORTISONE 1% CREAM 30 GM TOPICAL SCH ×2 (14:00→20:55)
[2016-11-18] MEDS ORDERED: POTASSIUM CHLORIDE 20 MEQ CONTROLLED RELEASE TAB PO ONE (15:30)
[2016-11-18] MEDS: MAGNESIUM SULFATE 1 GM PREMIX 100 ML IV SCH ×2 (16:31→18:11)
[2016-11-18 18:29] LABS: BICARBONATE 23.3 MEQ/L (21.0-32.0); POTASSIUM 3.7 MEQ/L (3.5-5.1)
[2016-11-19 00:02] LABS: BICARBONATE 25.3 MEQ/L (21.0-32.0); MAGNESIUM 2.3 MG/DL (1.5-2.5); POTASSIUM 3.6 MEQ/L (3.5-5.1)
[2016-11-19] MEDS: HYDROmorphone HCL PF 1 MG/ML VIAL IV PUSH PRN ×2 (00:15→06:42)
[2016-11-19 00:33] VITALS: BP 138/68; PULSE 72; RESP 19; TEMP 98.2; O2SAT 97
[2016-11-19 02:57] VITALS: PULSE 73
[2016-11-19] MEDS: SODIUM CHLOR 0.9% 1000 ML INJ 1,000 ML IV SCH (02:58)
[2016-11-19 03:48] VITALS: BP 140/64; PULSE 62; RESP 18; TEMP 97.9; O2SAT 97
[2016-11-19] MEDS: oxyCODONE/ACETAMINOPHEN 7.5 MG/325 MG TAB PO PRN ×2 (03:52→09:26)
[2016-11-19] MEDS: LEVOTHYROXINE SODIUM 112 MCG TAB PO SCH (06:37)
[2016-11-19] MEDS: HEPARIN SODIUM - SQ 10,000 UNITS/ML VIAL SQ SCH (06:37)
[2016-11-19] MEDS: HYDROCORTISONE 1% CREAM 30 GM TOPICAL SCH (06:37)
[2016-11-19] MEDS: LEVOTHYROXINE SODIUM 25 MCG TAB PO SCH (06:37)
[2016-11-19] MEDS: ACYCLOVIR 800 MG TAB PO SCH ×2 (06:37→09:13)
[2016-11-19] MEDS: NYSTATIN 100,000 U/GM PWD 15 GM BTL TOPICAL SCH (06:37)
[2016-11-19 08:36] VITALS: BP 140/63; PULSE 59; RESP 18; TEMP 98; O2SAT 96
[2016-11-19] MEDS: CHLORTHALIDONE 50 MG TAB PO SCH (09:00)
[2016-11-19] MEDS: ASPIRIN 81 MG CHEW TAB PO SCH (09:10)
[2016-11-19] MEDS: ALPRAZolam 0.5 MG TAB PO SCH (09:10)
[2016-11-19] MEDS: CHOLECALCIFEROL (VIT D3) 5000 UNIT CAP PO SCH (09:10)
[2016-11-19] MEDS: amLODIPine BESYLATE 5 MG TAB PO SCH (09:11)
[2016-11-19] MEDS: DOCUSATE SODIUM 50 MG/SENNA 8.6 MG TAB PO SCH (09:12)
[2016-11-19] MEDS: POTASSIUM CHLORIDE 20 MEQ CONTROLLED RELEASE TAB PO SCH (09:12)
[2016-11-19] MEDS: NEBIVOLOL 10 MG TAB PO SCH (09:12)
[2016-11-19] MEDS: PANTOPRAZOLE SOD 40 MG DELAYED RELEASE TAB PO SCH (09:12)
[2016-11-19] MEDS: SODIUM CHLORIDE 0.9% FLUSH 10 ML FLUSH IV FLUSH SCH (09:13)
[2016-11-19] MEDS: GABAPENTIN 100 MG CAP PO SCH (09:13)
--- NOTE | 2016-11-19 10:27 | HHI.DCPOC ---
Discharge Care Plan Diagnosis: (1) Shingles Your Health Problems Are: Skin Breakdown Inflammation Goals to Promote Your Health * To prevent worsening of your condition and complications * To maintain your health at the optimal level Directions to Meet Your Goals Take your medications as prescribed Follow your dietary instruction Follow activity as directed Keep your appointments as scheduled Take your immunizations and boosters as scheduled If your symptoms worsen call your PCP, if no PCP go to Urgent Care Center or Emergency Room Smoking is Dangerous to Your Health. Avoid second hand smoke Call the 24-hour hour crisis hotline for domestic abuse at Marni Mesa Nov 19, 2016 10:27
[2016-11-19] MEDS ORDERED: ACYC800T PO (10:32)
[2016-11-19] MEDS ORDERED: GABA100C4 PO (10:32)
--- NOTE | 2016-11-19 10:33 | HHI.PR ---
Subjective Subjective Remarks c/o right flank pain, worst today itching over left scalp rash under right breast eating okay no cp no sob no fever (Marni Mesa) Review of Systems Constitutional Constitutional Remarks 12 point review of systems completed, negative except as noted above (Marni Mesa) Vitals/Results Vital Signs Vital Signs Date Time Temp Pulse Resp B/P (MAP) Pulse Ox O2 Delivery O2 Flow Rate FiO2 11/19/16 08:36 98.0 59 18 140/63 (88) 96 11/19/16 04:00 11/19/16 03:48 97.9 62 18 140/64 (89) 97 11/19/16 02:57 73 11/19/16 00:33 98.2 72 19 138/68 (91) 97 11/19/16 00:00 11/18/16 20:00 98.1 62 18 173/72 (105) 97 11/18/16 17:07 97.6 65 18 196/84 (121) 96 11/18/16 12:14 98.1 65 18 137/69 (91) 95 (Marni Mesa) CBC/BMP: 11/17/16 0414 11/18/16 2312 Lab Results Laboratory Tests Test 11/18/16 17:20 11/18/16 23:12 Blood Urea Nitrogen 9 MG/DL 8 MG/DL Creatinine 1.33 MG/DL 1.33 MG/DL Random Glucose 121 MG/DL 123 MG/DL Calcium Level 9.4 MG/DL 9.0 MG/DL Sodium Level 133 MEQ/L 133 MEQ/L Potassium Level 3.7 MEQ/L 3.6 MEQ/L Chloride Level 99 MEQ/L 99 MEQ/L Carbon Dioxide Level 23.3 MEQ/L 25.3 MEQ/L Anion Gap 11 MEQ/L 9 MEQ/L Estimat Glomerular Filtration Rate 39 ML/MIN 39 ML/MIN Magnesium Level 2.3 MG/DL (Marni Mesa) Physical Exam General General Appearance: Well Developed, No Acute Distress, Comfortable, Obese (Marni Mesa) Eyes Eye Exam: Pupils Equal, Pupils Reactive (Marni Mesa) Ears & Nose Ears & Nose Exam: Nasal Mucosa [place] (Marni Mesa) Throat Throat Exam: Oral Mucosa [place] & Moist (Marni Mesa) Neck Neck Exam: Neck Supple, Trachea Midline (Marni Mesa) Pulmonary Resp Exam: Clear Bilaterally, No Distress (Marni Mesa) Cardiology CV Exam: Regular (Marni Mesa) Gastrointestinal/Abdomen GI Exam: Soft, Non-Tender, Bowel Sounds Present, Non-Distended (Marni Mesa) Musculoskeletal MS Exam: Joints Intact (Marni Mesa) Integumentary Skin Remarks Shingles lesions to right hip area erythematous, scaly rash over left base of neck and scalp, ? eczema pink flat rash under right breast (Marni Mesa) Extremeties Extremities Exam: No Edema, Pedal Pulses Palpable (Marni Mesa) Neurologic Neuro Exam: Alert, Awake, Oriented, Speech Clear, Moving All Extremities, No Focal Deficits (Marni Mesa) VTE Prophylaxis VTE Prophylaxis Meds: Heparin (Marni Mesa) PUD Prophylasis PUD Prophylaxis: Protonix (Marni Mesa) Assessment/Plan Assessment/Plan Left facial tingling, negative for stroke, no TIA weakness -Appreciate neurology input, doesn't believe pt. has TIA or stroke -continue with PT Shingles right hip -Continue acyclovir -Continue gabapentin, inc to 100 mg po TID Rash left neck, eczema fungal rash under right breast -Nystatin powder -Hydrocortisone cream -Benadryl PRN GERD -PPI, medical management Hypokalemia -BMP now Debility, generalized weakness -PT eval -CM consult for HHC HTN, uncontrolled, better now -continue home meds Renal ins -improved -continue IVF Heparin for DVT prophylaxis PPI for GI prophylaxis CM for HHC, arrangements made Poss dc today Discussed with patient Discussed with nurse Discussed with Dr. olivia, This patient was seen by myself and Dr. Olivia, this note is written on his behalf (Marni Mesa) Assessment/Plan pt was seen & examined d/w PT d/w Marni agree w above cont current tx ok to d.c home f/u pcp (Kamla Olivia MD) Marni Mesa Nov 19, 2016 10:33 Kamla Olivia MD Nov 19, 2016 13:02
--- NOTE | 2016-11-19 10:36 | HHI.FF ---
Face to Face Verification Diagnosis: (1) Shingles Physical Therapy Order: Evaluate and Treat Home Health Nursing Order: Medical education Signs/symptoms of disease process Nursing assessment with vital signs I have seen patient Bronwyn Wilson on 11/19/16. My clinical findings support the need for the requested home health care services because: Deconditioned w/ increased weakness I certify that my clinical findings support that this patient is homebound because: Unsafe to leave home unassisted Need for psychosocial assistance Marni Mesa [facility] Nov 19, 2016 10:36
--- NOTE | 2016-11-22 01:14 | HHI.DS ---
Discharge Summary Admission Date Nov 15, 2016 at 18:28 Discharge Date: Nov 19, 2016 Admitting Diagnosis CVA, shingles, hyponatremia (1) Shingles ICD Codes: B02.9 - [place] without complications Status: Acute (2) Accelerated hypertension ICD Codes: I10 - Malignant hypertension Status: Acute (3) CKD (chronic kidney disease), stage III ICD Codes: N18.3 - Chronic kidney disease, stage III (moderate) Status: Chronic (4) CAD (coronary artery disease) ICD Codes: I25.10 - Atherosclerotic heart disease of [place] coronary artery without angina pectoris Status: Chronic (5) Osteoarthritis ICD Codes: M19.90 - Osteoarthrosis Status: Chronic (6) GERD (gastroesophageal reflux disease) ICD Codes: K21.9 - Gastro-esophageal reflux disease without esophagitis Status: Chronic (7) Hypothyroidism ICD Codes: E03.9 - Hypothyroidism, unspecified Status: Chronic CBC/BMP: 11/18/16 2312 Imaging Last Impressions Head CT 11/15/167 Signed Impressions: Service Date/Time: Tuesday, November 15, 2016 16:10 - CONCLUSION: There is an area of lucency involving right occipital lobe possibly old, however not present on the 2013 examination and acute ischemic event is not excluded. Sydney Velasquez MD Chest X-Ray 11/15/161416 Signed Impressions: Service Date/Time: Tuesday, November 15, 2016 14:31 - CONCLUSION: No acute disease. Seth Gama MD Abdomen/Pelvis CT 11/15/161416 Signed Impressions: Service Date/Time: Tuesday, November 15, 2016 16:14 - CONCLUSION: Overall stable chronic benign changes. Sydney Velasquez MD Head Magnetic Resonance Angiography 11/15/16 0000 Signed Impressions: Service Date/Time: Tuesday, November 15, 2016 21:30 - CONCLUSION: Normal examination. Sydney Velasquez MD Brain MRI 11/15/16 0000 Signed Impressions: Service Date/Time: Tuesday, November 15, 2016 21:30 - CONCLUSION: Chronic atrophic and small vessel ischemic changes without any evidence for acute hemorrhage or mass effect. Sydney Velasquez MD Hospital Course This is a pleasant, anxious, 76-year-old female who was just released from the hospital six days ago with a small bowel obstruction. She stated that she went home but still was having problems with generalized weakness and fatigue. She states that she had not been able to do very much and over the past couple of days she has noticed increased headaches, some possible fevers, some clamminess that started last night and some left facial tingling and numbness. She stated that she could not get her words out and had some mild dysarthria. She was unable to hold a cup in her left or right hand but most of her pain has been on the left side, left leg, left hip and left arm and left side of her face. She states that her abdomen is still having some sharp pains that are radiating through especially on the left side but she complains of a rash on her right hip that had just became noticeable yesterday. The patient denied any chest pain. Denied any shortness of breath. She has had a significant history of adhesions in the past and has had treatment for at least five abdominal obstructions.In the emergency room the patient was given three baby aspirin with no improvement of symptoms. She does note some very painful burning around the rash on her right hip and states that it seems to burn across to the other side. She also noted one spot yesterday on her left leg that was burning but there was no rash present at that time. In the ED, she was evaluated: LABORATORY DATA Diagnostic data, WBC count 4.5, red blood cell 4.25, hemoglobin 13.4, hematocrit 39.8, platelet count 234. Monocyte count 10.2. Chemistry, sodium 129, potassium 3.4, chloride 93, creatinine 1.61. GFR 31, glucose is 117. Lactic acid 1.3. Total creatine kinase 496. CK2 3.4. Troponin less than 0.02. Urine is light yellow, clear, pH is 6.5, specific gravity 1.005. Negative for glucose, protein, ketones, occult blood, nitrite, bilirubin. Urobilinogen less than 2. Negative leukocyte esterase. She does have occasional bacteria, few mucus. Urine cath culture has been ordered. She has also had blood cultures that are pending. IMAGING Imaging studies show abdomen and pelvis CT scan to be overall stable, chronic, benign changes. A chest x-ray aerated without evidence of mass, infiltrate or effusion. Head CT scan, she has an area of lucency involving the right occipital lobe, this is possibly old, however, was not present on the 2013 examination and an ischemic acute event cannot be excluded. Pt. was admitted for evaluation to rule out stroke. Neuro work up done. Imaging studies showed no stroke. Neurology consulted. Her blood pressure was uncontrolled, when necessary and home medications were initiated. She was started on acyclovir for shingles rash. Was started on gabapentin for pain. She was hydrated cautiously. Home medications were reviewed and initiated. Physical therapy was consulted for assistance with mobility Neurology did not believe the patient had a TIA or stroke. Symptoms likely due from shingles. Her pain improved after gabapentin was increased. She also complained of a different type of rash--left neck, which appear to be eczema As well as a fungal rash under right breast Was given Nystatin powder and -Hydrocortisone cream Benadryl PRN ordered Was found Hypokalemia-was replaced. BMP was followed Physical therapy assisted with mobility, recommended home health care Patient stabilizes, pain better controlled. Case management consultation for discharge planning Discharged home in stable condition Pt Condition on Discharge: Stable Discharge Disposition: Disch w/ Home Health Serv Discharge Instructions DIET: Follow Instructions for: Heart Healthy Diet Activities you can perform: Weight Bearing as Amira Follow up Referrals: PCP Follow-up New Medications: Acyclovir (Acyclovir) 800 Mg Tab 800 MG PO 5 TIMES A DAY for SHINGLES , #33 TAB Gabapentin (Gabapentin) 100 Mg Cap 100 MG PO BID for Pain Management, #90 CAP Continued Medications: Alprazolam (Xanax) 0.5 Mg Tab 0.5 MG PO DAILY for ANXIETY, TAB 0 Refills Amlodipine (Amlodipine) 5 Mg Tab 5 MG PO DAILY for Blood Pressure Management, #30 TAB 0 Refills Chlorthalidone (Chlorthalidone) 25 Mg Tab 12.5 MG PO DAILY, TAB 0 Refills Ergocalciferol (Vitamin D2) 2,000 Unit Tab 5000 UNITS PO DAILY for Nutritional Supplement, TAB [address] (Nexium) 40 Mg Capdr 40 MG PO DAILY, CAP 0 Refills Levothyroxine (Synthroid) 137 Mcg Tab 137 MCG PO DAILY for Thyroid, #30 TAB 0 Refills Nebivolol (Bystolic) 10 Mg Tab 20 MG PO DAILY for Blood Pressure Management, #30 TAB 0 Refills Oxycodone-Acetaminophen (Oxycodone-Acetaminophen) 7.5-325 mg Tab 1 TAB PO Q6H PRN for PAIN, TAB 0 Refills Discontinued Medications: Gabapentin (Gabapentin) 100 Mg Cap 100 MG PO HS, #30 CAP 0 Refills Marni Mesa Nov 22, 2016 01:14
== END 2016-11-19 12:24 | disposition home health service (06) | DRG 596 ==
LOC: NEPE 13:58 → NEDA 18:28 → NEDH 23:05 → N05B 11-16 14:44
PROVIDERS: ADMIT Specialist; ATTEND Specialist
DX: B02.9 Zoster without complications (principal); N18.3 Chronic kidney disease, stage 3 (moderate); M06.9 Rheumatoid arthritis, unspecified; E87.1 Hypo-osmolality and hyponatremia; I25.2 Old myocardial infarction; B36.9 Superficial mycosis, unspecified; I12.9 Hypertensive chronic kidney disease with stage 1 through stage 4 chronic kidney disease, or unspecified chronic kidney disease; E03.9 Hypothyroidism, unspecified; M10.9 Gout, unspecified; Z96.653 Presence of artificial knee joint, bilateral; K21.9 Gastro-esophageal reflux disease without esophagitis; J45.909 Unspecified asthma, uncomplicated; M19.90 Unspecified osteoarthritis, unspecified site; I25.10 Atherosclerotic heart disease of native coronary artery without angina pectoris; E78.5 Hyperlipidemia, unspecified; E87.6 Hypokalemia; R53.81 Other malaise; R47.1 Dysarthria and anarthria; Z86.73 Personal history of transient ischemic attack (TIA), and cerebral infarction without residual deficits
CPT/HCPCS: 70450; 70544; 70551; 71010; 74176; 76937; 80048; 80053; 81001; 82550; 82552; 83605; 83690; 83735; 84484; 85025; 85027; 85610; 85730; 87040; 87086; 93005; 96374; 96375; J1170; J1644; J2060; J2270; J2405; J3475; J3480; J7030; J7040